=== PATIENT | male | born 1980 | race Caucasian/White ===

== ENCOUNTER 2021-03-11 06:37 | Emergency (ER) | payer OTHER, SELFPAY ==
--- NOTE | ~2021-03-11 | XR_ITS ---
EXAMINATION: XR ABDOMEN COMPLETE CLINICAL INDICATION: Constipation COMPARISON: 03/03/20 TECHNIQUE: Supine and upright views of the abdomen. FINDINGS: There are no suspicious calcifications. Small the moderate amount of gas within small and large bowel throughout the abdomen and pelvis to level the rectum. There is no disproportionate small bowel dilation. There is a large amount of fecal residue throughout the colon to level the rectum. There is no evidence of pneumoperitoneum. No pneumatosis. No evidence of a mass or collection. There may be some linear scarring in the posterior right costophrenic sulcus region. XR/XR abdomen min 2V IMPRESSION: No evidence of small bowel obstruction. No free intraperitoneal gas. Large amount of fecal residue throughout the colon.
[2021-03-11 06:51] VITALS: BP 161/90; PULSE 66; RESP 20; TEMP 36.5; O2SAT 98; BMI 28.8
--- NOTE | 2021-03-11 07:08 | ED.NAVMDI ---
HPI - Nausea/Vomiting/Diarrhea General Chief complaint: Nausea/Vomiting/Diarrhea Stated complaint: Vomiting Time Seen by Provider: 03/11/21 07:08 Source: patient Mode of arrival: ambulatory Limitations: no limitations History of Present Illness HPI Narrative: Patient in methadone clinic, states he gets vomiting from constipation elicited complaint: nausea and vomiting Onset (ago): hour(s) Description of vomiting: watery Associated abdominal pain: Yes Location of pain: diffuse Radiation: diffuse Pain consistency: intermittent Severity: mild Related Data Previous Rx's Medication Instructions Recorded lactulose 20 g PO TID #1200 ml 03/11/21 promethazine 25 mg PO TID PRN #14 tab 03/11/21 psyllium husk [Metamucil] 1 tbsp PO DAILY #660 g 03/11/21 Allergies Allergy/AdvReac Type Severity Reaction Status Date / Time haloperidol [From HALDOL] Allergy Unknown unk Unverified 05/22/20 15:26 Review of Systems Constitutional: Constitutional: Reports no additional constitutional complaints Eyes: Eyes: Reports no additional eye complaints ENT: Denies dizziness Cardiovascular: Cardiovascular: Reports no additional cardiovascular complaints Respiratory: Respiratory: Reports as per HPI Gastrointestinal: Gastrointestinal: Reports no additional gastrointestinal complaints Musculoskeletal: Musculoskeletal: Reports no additional musculoskeletal complaints Integumentary/Breasts: Skin/Breast: Denies rash Neurologic: Reports system reviewed and no additional complaints, except as documented, Denies dizziness and Denies Sensory deficit (Neuro) Psychiatric: Psychiatric: Denies anxiety PMFSH Past Medical History Medical History ACL (anterior cruciate ligament) tear Anxiety Depression Social History Social History Use of substances other than those prescribed or required for medical reasons: Yes Substance Use Type: Opiates Substance Use Type Other:: fentanyl Last Used Substance: Unknown Any prior treatment program specific to substance use: Yes Advance Directives: Yes Advance Directives Information Provided: Yes Advance Directives on File: No Physical Exam Vital Signs: Vital Signs: Last Vital Signs Temp 97.7 F 03/11/21 06:51 Pulse 51 03/11/21 08:49 Resp 16 03/11/21 08:49 BP 116/70 03/11/21 08:49 Pulse Ox 96 03/11/21 08:49 Body Mass Index 28.8 Const: Other: Nausea and vomiting Nutritional Appearance: average body habitus Orientation/consciousness: oriented to person and patient oriented x3 Limitations: no limitations HENMT: Head: Yes normal to inspection Ears: external ears normal General nose exam: Normal external nose present Mouth: Normal oral and palatal mucosa present and oropharynx normal Throat: Yes posterior oropharynx normal Eyes: General: appearance normal, both eyes and all related structures Neck: Other: supple Neck: Yes normal visual inspection Chest: Chest palpation & inspection: normal inspection of the chest Resp: Auscultation: clear to auscultation bilaterally Cardio: Jugular venous distension: no JVD Rate: regular rate Rhythm: regular rhythm Heart sounds: S1 normal heart sound present and S2 normal heart sound present GI: Inspection: Yes normal to inspection Palpation (GI): Soft to palpation, nontender and No hepatosplenomegaly present Auscultation: normal bowel sounds : General: Yes no CVA tenderness Back/Spine/Pelvis: Back: no CVA tenderness Skin: General skin exam: no rashes or lesions noted Neuro: General: oriented to person and patient oriented x3 Cranial nerves: Yes CN's II-XII intact bilaterally Motor exam (neuro): 5/5 motor strength present throughout Sensory Exam: No Sensory deficit (Neuro) Extrem: General: Yes normal to inspection Psych: Appearance: grossly normal Course Course Course Narrative: xray shows large amount of stool, labs normal Reevaluation(s) Reevaluation #1: patient sleeping will dc on phenergan, lactulose and metamucil Time: 08:56 MDM - Nausea/Vomiting/Diarrhea Lab Data Result diagrams: 03/11/21 07:28 03/11/21 07:28 Labs: Lab Results 03/11/21 03/11/21 Range/Units 07:28 07:28 WBC 6.3 (4.8-10.8) X10*3/uL RBC 5.01 (4.60-5.80) X10*6/uL Hgb 14.7 (14.0-18.0) g/dl Hct 43.4 (42-52) % MCV 86.6 (80-98) fL MCH 29.3 (27.0-33.0) pg MCHC 33.9 (31.0-36.0) g/dl RDW 13.2 (11.0-16.0) % Plt Count 177 (160-400) X10*3/uL MPV 10.2 (9.4-12.4) fL Immature Gran % (Auto) 0.2 (0.0-0.4) % Neut % (Auto) 60.2 (45-73) % Lymph % (Auto) 27.3 (20-40) % Burnett % (Auto) 9.1 (2-11) % Eos % (Auto) 2.4 (0-4) % Baso % (Auto) 0.8 (0-2) % Lymph # (Auto) 1.7 (1.2-4.9) X10*3/uL Burnett # (Auto) 0.6 (0.1-1.2) X10*3/uL Eos # (Auto) 0.2 (0.0-0.4) X10*3/uL Baso # (Auto) 0.1 (0.0-0.2) X10*3/uL Abs Immat Gran (auto) 0.01 (0.00-0.03) X10*3/uL Absolute Neuts (auto) 3.8 (2.0-8.3) X10*3/uL Absolute Nucleated RBC 0.000 (0.0-0.012) X10*3/uL Nucleated RBC % (auto) 0.0 (0.0-0.2) /100WBC Sodium 144 (135-145) mmol/L Potassium 3.8 (3.3-5.1) mmol/L Chloride 108 (96-108) mmol/L Carbon Dioxide 27 (22-29) mmol/L Anion Gap 13 (12-20) BUN 11 (9-16) mg/dL Creatinine 0.93 (0.5-1.4) mg/dL Estim Creat Clear Calc 112.7 Estimated GFR > 60 Random Glucose 102 (60-115) mg/dL Calcium 9.3 (8.4-10.2) mg/dL Total Bilirubin 0.5 (0.0-1.0) mg/dL Direct Bilirubin < 0.2 (0.0-0.5) mg/dL AST 20 (5-37) U/L ALT 18 (0-40) U/L Alkaline Phosphatase 64 (39-117) U/L Total Protein 6.6 (6.5-8.0) g/dL Albumin 4.2 (3.5-5.0) g/dL Lipase 26 (8-78) U/L Discharge Plan Discharge Clinical Impression: Constipation Qualifiers: Constipation type: drug induced constipation Qualified Code(s): K59.03 - Drug induced constipation Vomiting Qualifiers: Vomiting type: bilious vomiting Nausea presence: with nausea Qualified Code(s): R11.14 - Bilious vomiting Patient Disposition: Home, Self-Care Instructions: Constipation (ED) Prescriptions: New lactulose 20 gram/30 mL solution 20 g PO TID Qty: 1200 RF: 0 promethazine 25 mg tablet 25 mg PO TID PRN (Reason: nausea and vomiting) Qty: 14 RF: 0 Metamucil 3.4 gram/5.4 gram powder 1 tbsp PO DAILY Qty: 660 RF: 0 Referrals: Po,Patsy Shaw MD [Primary Care Provider] - 5 days
[2021-03-11] MEDS: 0.9 % Sodium Chloride 1,000 ML 200 ML IVCONT (07:30)
[2021-03-11 07:32] LABS: MANUAL DIFF FLAG NO
[2021-03-11 07:33] VITALS: PULSE 50; RESP 18; O2SAT 97
[2021-03-11 07:33] LABS: Basophils Absolute Auto 0.1 X10*3/uL (0.0-0.2); Basophils Percent Auto 0.8 % (0-2); Eosinophils Absolute Auto 0.2 X10*3/uL (0.0-0.4); Eosinophils Percent Auto 2.4 % (0-4); Hematocrit 43.4 % (42-52); Hemoglobin 14.7 g/dl (14.0-18.0); Imm Gran Abs Auto 0.01 X10*3/uL (0.00-0.03); Imm Gran Pct Auto 0.2 % (0.0-0.4); Lymphocytes Absolute Auto 1.7 X10*3/uL (1.2-4.9); Lymphocytes Percent Auto 27.3 % (20-40); Mean Corpuscular HGB Conc 33.9 g/dl (31.0-36.0); Mean Corpuscular Hemoglobin 29.3 pg (27.0-33.0); Mean Corpuscular Volume 86.6 fL (80-98); Mean Platelet Volume 10.2 fL (9.4-12.4); Monocytes Absolute Auto 0.6 X10*3/uL (0.1-1.2); Monocytes Percent Auto 9.1 % (2-11); Neutrophils Absolute Auto 3.8 X10*3/uL (2.0-8.3); Neutrophils Percent Auto 60.2 % (45-73); Platelet Count 177 X10*3/uL (160-400); Red Blood Count 5.01 X10*6/uL (4.60-5.80); Red Cell Distribution Width 13.2 % (11.0-16.0); White Blood Count 6.3 X10*3/uL (4.8-10.8)
[2021-03-11 08:00] LABS: Alanine Aminotransferase 18 U/L (0-40); Albumin Level 4.2 g/dL (3.5-5.0); Alkaline Phosphatase 64 U/L (39-117); Anion Gap 13 (12-20); Aspartate Amino Transferase 20 U/L (5-37); Bilirubin Direct < 0.2 mg/dL (0.0-0.5); Bilirubin Total 0.5 mg/dL (0.0-1.0); Blood Urea Nitrogen 11 mg/dL (9-16); Calcium 9.3 mg/dL (8.4-10.2); Carbon Dioxide 27 mmol/L (22-29); Chloride 108 mmol/L (96-108); Creatinine Clr Calc Pharmacy 112.7; Estimated Glomerular Filt Rate > 60; Glucose Random 102 mg/dL (60-115); Lipase 26 U/L (8-78); Potassium 3.8 mmol/L (3.3-5.1); Sodium 144 mmol/L (135-145); Total Protein 6.6 g/dL (6.5-8.0)
--- NOTE | 2021-03-11 08:08 | PC.NURSE ---
Patient is resting quietly in bed. Pt states nausea is better.
[2021-03-11 08:49] VITALS: BP 116/70; PULSE 51; RESP 16; O2SAT 96
[2021-03-11] MEDS: Lactulose 20 GM/30 ML SOLUTION 30 GM PO (09:00)
== END 2021-03-11 09:07 | disposition home or self-care (01) ==
PROVIDERS: Emergency Provider Emergency Medicine; PCP Internal Medicine
DX: R11.14 Bilious vomiting (principal); K59.03 Drug induced constipation; T50.905A Adverse effect of unspecified drugs, medicaments and biological substances, initial encounter; Y92.9 Unspecified place or not applicable
CPT/HCPCS: 36415; 74019; 80048; 80076; 83690; 85025; 96361; 96374; 99284; J2550

== ENCOUNTER → 2021-04-15 08:52 | Outpatient (BNVA) | payer OTHER, SELFPAY | PROVIDERS: PCP Internal Medicine; Referring Provider Internal Medicine; Visit Provider Physician Assistant | DX: R11.2 Nausea with vomiting, unspecified (principal); F41.9 Anxiety disorder, unspecified; F32.9 Major depressive disorder, single episode, unspecified; K59.00 Constipation, unspecified; F43.10 Post-traumatic stress disorder, unspecified; Z78.9 Other specified health status | CPT/HCPCS: 99202 ==

== ENCOUNTER → 2021-05-04 12:47 | Outpatient (BNVA) | payer OTHER, SELFPAY | PROVIDERS: PCP Internal Medicine; Referring Provider Internal Medicine; Visit Provider Surgery | DX: L72.0 Epidermal cyst (principal) | CPT/HCPCS: 99202 ==

== ENCOUNTER 2021-06-03 12:15 | Outpatient (REF) | payer OTHER, SELFPAY ==
[2021-06-03 12:42] VITALS: BMI 31.4
[2021-06-03 12:44] VITALS: BP 149/87; PULSE 78; RESP 18; TEMP 36.8
--- NOTE | 2021-06-03 12:50 | W.PM.OPN ---
Operative Note Operative Note Date of Service: 06/03/21 Narrative: Preop diagnosis: Epidermal cyst on the back Postop diagnosis: The same Procedure: Excision of epidermal cyst from the back under local anesthesia Surgeon: Reji Cohen MD The patient is a 40-year-old male with a cystic induration about 2.5 cm in the back. This was consistent with a ruptured epidermal cyst. He understood the technique of excision under local anesthesia and he was aware of the risks, benefits, and alternatives. He was brought to the minor procedure room and placed in prone position. The area of the cyst was prepped and draped. Lidocaine 1% was used for local anesthesia. An elliptical incision was made in the skin around this induration using a blade 15. This was carried down through the full-thickness of the skin and subcutaneous fat to excise the entire indurated area. This was sent as specimen. The excision site was about 3 0.5 cm long and 3 cm wide. I closed the incision with full-thickness nylon 3-0 interrupted sutures. Dressings were applied. The procedure was completed. The patient tolerated procedure well. There were no complications noted. Estimated blood loss was about 5 cc. The patient was given wound care instructions. He will be seen in the office for follow-up for removal of sutures.
== END 2021-06-03 12:16 | disposition home or self-care (01) ==
LOC: HO.MS 12:15
PROVIDERS: PCP Internal Medicine; Visit Provider Surgery
PROC: (CPT 11403; principal; 2021-06-03 12:20)
DX: L72.0 Epidermal cyst (principal)
CPT/HCPCS: 11403; 88304

== ENCOUNTER → 2021-06-18 11:06 | Outpatient (BNVA) | payer MEDICARE, MEDICAID, SELFPAY | PROVIDERS: PCP Internal Medicine; Visit Provider Surgery | DX: L72.8 Other follicular cysts of the skin and subcutaneous tissue (principal); F41.8 Other specified anxiety disorders; F43.10 Post-traumatic stress disorder, unspecified; F11.99 Opioid use, unspecified with unspecified opioid-induced disorder; Z88.8 Allergy status to other drugs, medicaments and biological substances; Z87.891 Personal history of nicotine dependence | CPT/HCPCS: 99212 ==

== ENCOUNTER 2021-09-02 11:47 | Outpatient (REF) | payer MEDICARE, MEDICAID, SELFPAY ==
--- NOTE | ~2021-09-02 | XR_ITS ---
EXAMINATION: XR foot LT min 3V, XR foot RT min 3V CLINICAL INFORMATION: Reason for Exam R60.0 - Localized edema COMPARISON: None. TECHNIQUE: AP, lateral, and oblique views of the bilateral feet XR/XR foot LT min 3V FINDINGS/IMPRESSION: No acute fracture or dislocation. Joint spaces are preserved. Bilateral Achilles tendon enthesopathy and right-sided plantar calcaneal spurring. No joint effusion.. Soft tissues are unremarkable.
--- NOTE | ~2021-09-02 | XR_ITS ---
EXAMINATION: XR foot LT min 3V, XR foot RT min 3V CLINICAL INFORMATION: Reason for Exam R60.0 - Localized edema COMPARISON: None. TECHNIQUE: AP, lateral, and oblique views of the bilateral feet XR/XR foot RT min 3V FINDINGS/IMPRESSION: No acute fracture or dislocation. Joint spaces are preserved. Bilateral Achilles tendon enthesopathy and right-sided plantar calcaneal spurring. No joint effusion.. Soft tissues are unremarkable.
[2021-09-02 12:47] LABS: Estimated Average Glucose 105 mg/dL; Hemoglobin A1c % 5.3 %
[2021-09-02 13:11] LABS: Anion Gap 12 (12-20); Blood Urea Nitrogen 11 mg/dL (9-16); Calcium 10.2 mg/dL (8.4-10.2); Carbon Dioxide 31 mmol/L (22-29); Chloride 103 mmol/L (96-108); Estimated Glomerular Filt Rate > 60; Glucose Random 91 mg/dL (60-115); Potassium 4.7 mmol/L (3.3-5.1); Sodium 141 mmol/L (135-145)
[2021-09-02 13:33] LABS: TSH reflex Free T4 2.27 uIU/mL (0.32-4.0)
== END 2021-09-02 11:48 | disposition home or self-care (01) ==
LOC: HO.LAB 11:47
PROVIDERS: PCP Internal Medicine; Visit Provider Nurse Practitioner Family
DX: R60.0 Localized edema (principal); M79.671 Pain in right foot; M79.672 Pain in left foot; Z13.1 Encounter for screening for diabetes mellitus
CPT/HCPCS: 36415; 73630; 80048; 83036; 84443

== ENCOUNTER 2022-05-01 15:14 | Emergency (ER) | payer MEDICARE, MEDICAID, SELFPAY ==
--- NOTE | ~2022-05-01 | XR_ITS ---
EXAMINATION: XR FOOT, RIGHT CLINICAL INFORMATION: Crush injury COMPARISON: Right foot radiographs 09/02/2021 TECHNIQUE: AP, lateral, and oblique views of the right foot. FINDINGS: No acute fracture or dislocation. Joint spaces are maintained. Lisfranc alignment is within normal limits. Posterior and plantar calcaneal spurs are noted. Focal proliferative bone projects from the anterior lip of the tibial plafond. No ankle joint effusion. XR/XR foot RT min 3V IMPRESSION: No acute fracture or dislocation.
[2022-05-01 15:26] VITALS: BP 145/87; PULSE 67; RESP 16; TEMP 36.8; O2SAT 96; BMI 31.3
--- NOTE | 2022-05-01 16:04 | ED_ITS ---
HPI - Extremity Injury (Lower) General Chief Complaint: Extremity Injury, Lower Stated Complaint: ?Fx toe Time Seen by Provider: 05/01/22 16:04 Source: patient Mode of arrival: ambulatory Limitations: no limitations History of Present Illness HPI Narrative: Patient presents emergency department for evaluation of the right great toe/foot pain. He reports that yesterday he dropped a 50 lb machine onto the right foot when he was barefoot. Initially had some discomfort. However today he noticed bruising, swelling, and increasing pain. Pain is made worse with weight- bearing. Denies any prior injury or fracture to this foot. Denies any numbness or tingling. Has intact sensation. States he is able to move all of the toes as well as his foot/ankle. Related Data Home Medications Medication Instructions Recorded Confirmed methadone 10 mg/mL oral concentrate 60 mg PO DAILY 03/16/21 05/04/21 Previous Rx's Medication Instructions Recorded lactulose 20 gram/30 mL oral 20 g (30 mL) PO TID #1,200 mL 03/11/21 solution diclofenac sodium 1 % topical gel 2 g topical QID #100 grams 09/02/21 (Voltaren Arthritis Pain) nabumetone 500 mg tablet 500 mg PO BID #30 tabs 09/02/21 ondansetron HCl 4 mg tablet 4 mg PO BEDTIME PRN nausea and 09/02/21 (Zofran) vomiting #10 tabs Allergies Allergy/AdvReac Type Severity Reaction Status Date / Time haloperidol [From HALDOL] Allergy Unknown unk Verified 09/02/21 10:42 Review of Systems Review of Systems: Musculoskeletal: Positive foot pain as noted in HPI Yes all other systems are reviewed and are negative PMFSH Past Medical History Attestation statement: The following information was validated with the patient. Source: old records reviewed Medical History ACL (anterior cruciate ligament) tear Anxiety and depression Epidermal cyst Hx of drug overdose PTSD (post-traumatic stress disorder) Surgical History History of epidermal inclusion cyst excision Family History Family History Father No problems noted. Mother COPD (chronic obstructive pulmonary disease) Sister No problems noted. Brother No problems noted. Social History Social History Housing: House Alcohol intake: former Patient Tobacco Use Status: Former Tobacco user Tobacco use type: Cigarette e-Cigarette/Vaping Use: Never Used Second Hand Smoke Exposure: Yes Substance Use Type: Opiates Advance Directives: No Advance Directives Information Provided: No service: No Current occupational status: disabled Physical Exam Vital Signs: Vital Signs: Last Vital Signs Temp 98.3 F 05/01/22 15:26 Pulse 67 05/01/22 15:26 Resp 16 05/01/22 15:26 BP 145/87 H 05/01/22 15:26 Pulse Ox 96 05/01/22 15:26 O2 Del Method 05/01/22 15:26 BMI result Body Mass Index 31.3 Appearance: Alert.?Oriented to person, place and time. No acute distress.?Normal affect. Eyes: Pupils equal, round and reactive to light.? ENT: Pharynx normal.?? Neck: Normal inspection.? Neck supple.?? CVS: Heart sounds normal. Normal heart rate and rhythm.? Pulses normal.?? Respiratory: No respiratory distress.? Lung sounds clear to auscultation bilaterally?? Abdomen: Soft and non-tender. ?? Skin: Skin warm and dry.? Normal skin color.? Extremities: No calf ttp. Bilateral 2+ DP/PT pulse. Right great toe with bruising that extends to the base of the toe over the metatarsal, localized swelling. No erythema, warmth, or obvious deformity. Neuro: Moves all extremities spontaneously. Sensation intact bilaterally. No motor deficits. Ambulates with antalgic gait Course Course Course Narrative: Patient is a 41-year-old male who presents emergency department for evaluation of traumatic crush injury to right foot having occurred yesterday. Extremity is neurovascularly intact. Cap refill to right great toe <3 seconds. XR reveals no acute fracture dislocation. Discussed plan of care for rest, ice, compression, elevation, NSAIDs for pain, postop shoe to offload the foot. Weightbearing as tolerated. Advised of worrisome signs and symptoms return back to the emergency department for, outpatient follow-up with primary care provider as needed. All questions were answered, and patient was discharged home in stable condition. MDM - Extremity Injury (Lower) Medical Records Attestation: I reviewed the patient's medical records. Imaging Data XR foot: Radiologist's impression: XR/XR foot RT min 3V IMPRESSION: No acute fracture or dislocation. Discharge Plan Discharge Clinical Impression: Contusion of foot Patient Disposition: Home, Self-Care Instructions: Foot Contusion (ED) Additional Instructions: As we discussed, please be sure to rest, apply ice, elevate the leg. Use the offloading shoe to help with pain when walking. Bear weight as tolerated. You can take ibuprofen 200 mg, 3 tablets (600mg) every 6-8 hours as needed for pain, in addition to Tylenol 500 mg, 2 tablets (1,000mg) every 4-6 hours as needed for pain, but not to exceed 3 doses daily (3,000mg).? Follow-up with your primary care provider as needed Return to the emergency department any new or worsening symptoms or concerns Prescriptions: No Action lactulose 20 gram/30 mL solution 20 g PO TID Qty: 1200 0RF Rx Instructions: take until stool is soft or becoming liquid than stop methadone 10 mg/mL concentrate 60 mg PO DAILY diclofenac sodium [Voltaren Arthritis Pain] 1 % gel 2 g topical QID Qty: 100 0RF Rx Instructions: apply to single elbow, wrist or hand; for hand includes palm/fingers/back of hand nabumetone 500 mg tablet 500 mg PO BID Qty: 30 0RF ondansetron HCl [Zofran] 4 mg tablet 4 mg PO BEDTIME PRN (Reason: nausea and vomiting) Qty: 10 0RF
== END 2022-05-01 16:49 | disposition home or self-care (01) ==
PROVIDERS: Emergency Provider Emergency Medicine; PCP Internal Medicine
DX: S90.31XA Contusion of right foot, initial encounter (principal); W20.8XXA Other cause of strike by thrown, projected or falling object, initial encounter; Y93.9 Activity, unspecified; Y92.9 Unspecified place or not applicable; Y99.9 Unspecified external cause status
CPT/HCPCS: 73630; 99283

== ENCOUNTER 2022-09-09 12:22 | Emergency (ER) | payer MEDICARE, MEDICAID, SELFPAY ==
[2022-09-09 14:43] VITALS: BP 135/91; PULSE 55; RESP 18; TEMP 36.1; O2SAT 96; BMI 31.3
--- NOTE | 2022-09-09 14:47 | ED.GENADULT ---
HPI - General Adult General Stated complaint: mouth infection Related Data Home Medications Medication Instructions Recorded Confirmed methadone 10 mg/mL oral concentrate 60 mg PO DAILY 03/16/21 05/04/21 Previous Rx's Medication Instructions Recorded lactulose 20 gram/30 mL oral 20 g (30 mL) PO TID #1,200 mL 03/11/21 solution diclofenac sodium 1 % topical gel 2 g topical QID #100 grams 09/02/21 (Voltaren Arthritis Pain) nabumetone 500 mg tablet 500 mg PO BID #30 tabs 09/02/21 ondansetron HCl 4 mg tablet 4 mg PO BEDTIME PRN nausea and 09/02/21 (Zofran) vomiting #10 tabs Allergies Allergy/AdvReac Type Severity Reaction Status Date / Time haloperidol [From HALDOL] Allergy Unknown unk Verified 09/09/22 14:48 PMFSH Past Medical History Medical History ACL (anterior cruciate ligament) tear Anxiety and depression Epidermal cyst Hx of drug overdose PTSD (post-traumatic stress disorder) Surgical History History of epidermal inclusion cyst excision Family History Family History Father No problems noted. Mother COPD (chronic obstructive pulmonary disease) Sister No problems noted. Brother No problems noted. Social History Social History Housing: House Alcohol intake: former Patient Tobacco Use Status: Former Tobacco user Tobacco use type: Cigarette e-Cigarette/Vaping Use: Never Used Second Hand Smoke Exposure: Yes Substance Use Type: Opiates service: No Current occupational status: disabled Course Course Course Narrative: RME: Discharge Plan Discharge Prescriptions: No Action lactulose 20 gram/30 mL solution 20 g PO TID Qty: 1200 0RF Rx Instructions: take until stool is soft or becoming liquid than stop methadone 10 mg/mL concentrate 60 mg PO DAILY diclofenac sodium [Voltaren Arthritis Pain] 1 % gel 2 g topical QID Qty: 100 0RF Rx Instructions: apply to single elbow, wrist or hand; for hand includes palm/fingers/back of hand nabumetone 500 mg tablet 500 mg PO BID Qty: 30 0RF ondansetron HCl [Zofran] 4 mg tablet 4 mg PO BEDTIME PRN (Reason: nausea and vomiting) Qty: 10 0RF
--- OUTSIDE RECORDS SUMMARY | 2022-09-09 14:54 | XMS_ITS ---
:1980 Author Care Team Providers Name Role Phone DR. SHELBY REIS Primary Care Provider [phone] DR. SHELBY REIS Referring Provider [phone] VINNIE CHANEL News Agent [phone] Allergies Code Code System Name Reaction Severity Status Onset Haldol ? ? Active ? Medications Name Status Start Date Stop Date ? ? Augmentin 875 mg-125 mg tablet Completed ? 0 10/20/2018 Take 1 tablet every 12 hours by oral route for 10 days. naproxen 500 mg tablet Active ? Not avail able sulfamethoxazole 800 mg-trimethoprim 160 mg tablet Completed ? 10/20/2018 Tessalon Perles 100 mg capsule Completed ? 0 10/20/2018 Take 1 capsule 3 times a day by oral route for 5 days. Problems No Known Problems Procedures None recorded. Results Lab Results Date Name Specimen Result Interpretation Description Value Range Status Address ? 10/25/2018 Surgical Pathology ? Surgical ? ? Final [facility] Study [facility]: [address] Past Encounters None recorded. Social History Tobacco Smoking Status Former Smoker Vaccine List None recorded. Plan of Care Reminders Provider Appointments None recorded. ? ? Lab None recorded. ? ? Referral None recorded. ? ? Procedures None recorded. ? ? Surgeries None recorded. ? ? Imaging None recorded. ? ? Vitals 11/20/2018 11:20AM ANY APPT - 05 MIN Height Weight BMI Blood Pressure 67 in 228 lbs 8 oz 35.8 kg/m2 122/82 mm[Hg] 11/08/2018 11:30AM Surgery-F/U Height Weight BMI Blood Pressure 67 in 234 lbs 6.4 oz 36.7 kg/m2 141/89 mm[Hg] 10/25/2018 01:30PM SURG-LOCAL Height Weight BMI 67 in 227 lbs 16 oz 35.7 kg/m2 10/20/2018 11:00AM Surgery-TRANSLITERATOR Height Weight BMI Blood Pressure 67 in 227 lbs 3.2 oz 35.6 kg/m2 124/82 mm[Hg] 08/17/2018 01:20PM ANY APPT - 05 MIN Weight Blood Pressure 287 lbs 16 oz 130/62 mm[Hg]
--- OUTSIDE RECORDS SUMMARY | 2022-09-09 14:54 | XMS_ITS ---
:1980 Author Care Team Providers Name Role Phone DR. SHELBY REIS Primary Care Provider [phone] DR. SHELBY REIS Referring Provider [phone] VINNIE CHANEL School Janitor [phone] Allergies None recorded. Medications Name Status Start Date Stop Date ? ? naproxen 500 mg tablet Active ? Not avail able sulfamethoxazole 800 mg-trimethoprim 160 mg tablet Active ? Not available Problems None recorded. Procedures None recorded. Results Lab Results None recorded. Past Encounters None recorded. Social History None recorded. Vaccine List None recorded. Plan of Care Reminders Provider Appointments None recorded. ? ? Lab None recorded. ? ? Referral None recorded. ? ? Procedures None recorded. ? ? Surgeries None recorded. ? ? Imaging None recorded. ? ? Vitals Weight Blood Pressure 230 lbs 126/82 mm[Hg]
[2022-09-09] MEDS: Amoxicillin 500 MG CAPSULE PO (14:56)
[2022-09-09] MEDS: Clindamycin HCL 300 MG CAPSULE PO (14:56)
== END 2022-09-09 15:11 | disposition home or self-care (01) ==
PROVIDERS: Emergency Provider Emergency Medicine; PCP Internal Medicine
DX: K05.10 Chronic gingivitis, plaque induced (principal)
CPT/HCPCS: 99282; 99283

== ENCOUNTER 2022-12-15 08:18 | Outpatient (REF) | payer OTHER, SELFPAY ==
[2022-12-15 08:29] LABS: MANUAL DIFF FLAG NO
[2022-12-15 08:41] LABS: Basophils Percent Auto 0.5 % (0-2); Eosinophils Absolute Auto 0.2 X10*3/uL (0.0-0.4); Eosinophils Percent Auto 1.8 % (0-4); Hematocrit 42.1 % (42.0-52.0); Hemoglobin 14.4 g/dl (14.0-18.0); Imm Gran Abs Auto 0.04 X10*3/uL (0.00-0.03); Imm Gran Pct Auto 0.5 % (0.0-0.4); Lymphocytes Absolute Auto 1.5 X10*3/uL (1.2-4.9); Lymphocytes Percent Auto 17.9 % (20-40); Mean Corpuscular HGB Conc 34.2 g/dl (31.0-36.0); Mean Corpuscular Hemoglobin 29.5 pg (27.0-33.0); Mean Corpuscular Volume 86.3 fL (80.0-98.0); Monocytes Absolute Auto 0.8 X10*3/uL (0.1-1.2); Monocytes Percent Auto 10.1 % (2-11); Neutrophils Absolute Auto 5.8 x10*3/uL (2.0-8.3); Neutrophils Percent Auto 69.2 % (45-73); Platelet Count 198 X10*3/uL (160-400); Red Blood Count 4.88 X10*6/uL (4.60-5.80); Red Cell Distribution Width 12.6 % (11.0-16.0); White Blood Count 8.3 X10*3/uL (4.8-10.8)
[2022-12-15 09:17] LABS: Alanine Aminotransferase 21 U/L (0-40); Albumin Level 4.2 g/dL (3.5-5.0); Alkaline Phosphatase 76 U/L (39-117); Anion Gap 13 (12-20); Aspartate Amino Transferase 22 U/L (5-37); Bilirubin Total 0.5 mg/dL (0.0-1.0); Blood Urea Nitrogen 12 mg/dL (9-16); Calcium 9.2 mg/dL (8.4-10.2); Carbon Dioxide 28 mmol/L (22-29); Chloride 105 mmol/L (96-108); Cholesterol 207 mg/dL; Estimated Glomerular Filt Rate > 60; Glucose Random 102 mg/dL (60-115); HDL Cholesterol 33 mg/dL; LDL Cholesterol Calculated 158 mg/dl; Potassium 4.5 mmol/L (3.3-5.1); Sodium 141 mmol/L (135-145); Total Protein 6.6 g/dL (6.5-8.0); Triglycerides 80 mg/dL
[2022-12-15 09:46] LABS: Folate 15.1 ng/mL (> or = 4.0); Free T4 (Free Thyroxine) 0.85 ng/dL (0.71-1.85); Thyroid Stimulating Hormone 2.25 uIU/mL (0.32-4.0); Vitamin B12 760 pg/mL (200-900)
== END 2022-12-15 08:19 | disposition home or self-care (01) ==
LOC: HO.LAB 08:18
PROVIDERS: PCP Internal Medicine; Visit Provider Internal Medicine
DX: L40.9 Psoriasis, unspecified (principal); E78.00 Pure hypercholesterolemia, unspecified
CPT/HCPCS: 36415; 80053; 80061; 82607; 82746; 84439; 84443; 85025

== ENCOUNTER 2022-12-18 10:28 | Outpatient (REF) | payer OTHER, SELFPAY ==
[2022-12-18 11:40] LABS: Erythrocyte Sedimentation Rate 5 MM/HR (0-15)
[2022-12-20 08:53] LABS: Syphilis Screen Nonreactive (Nonreactive)
[2022-12-20 18:38] LABS: Lyme Abs Screen <0.90 index
== END 2022-12-18 10:29 | disposition home or self-care (01) ==
LOC: HO.LAB 10:28
PROVIDERS: PCP Internal Medicine; Visit Provider Internal Medicine
DX: M79.10 Myalgia, unspecified site (principal)
CPT/HCPCS: 36415; 82550; 85652; 86140; 86617; 86618; 86780

== ENCOUNTER 2023-03-24 08:30 | Outpatient (AMB) | payer OTHER, SELFPAY ==
[2023-03-24 08:36] VITALS: BP 136/70; PULSE 82; O2SAT 98; BMI 35.1
--- NOTE | 2023-03-24 08:36 | MHC.PC.OV ---
Vital Signs 03/24/23 08:36 Height 5 ft 7 in Weight 224 lb BMI 35.1 BP 136/70 Blood Pressure Location Lt brachial Position Sitting Pulse 82 Pulse Source Pulse Oximeter Pulse Oximetry (%) 98 Oxygen Delivery Method Room Air Intake Visit Reasons: myalgia, IGT, cholesterol Allergies haloperidol [From HALDOL] Allergy (Unknown, Verified 03/24/23 08:36) unk Tobacco use date assessed: 09/16/22 Dental Screening Dental Screen Date: 03/24/23 Did you have a dental visit in the last 12 months?: Yes Did you have a dental problem in the last 6 months where you did not have access to dental care?: No Was dental information given to patient?: Patient has dentist HPI myalgia, IGT, cholesterol HPI Details 42-year-old obese male with generalized anxiety disorder polysubstance abuse hypercholesterolemia impaired glucose tolerance and myalgia last seen in December 2022 workup was requested and is here for follow-up. Patient does go to methadone clinic and change in dose was done. Physical therapy is helping and found to have to have methadone need to be increase EKG being done in [facility]. 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 COUNTS INCLUDE 234 BEDS AT THE [facility] Medical History (Updated 03/24/23 @ 08:53 by Patsy Sheffield MD) ACL (anterior cruciate ligament) tear Anxiety and depression Bilateral edema of lower extremity Calcaneal spur of right foot Encounter to establish care Enthesopathy Epidermal cyst Hx of drug overdose Nausea Nausea & vomiting Physical exam (~09/02/21) Poor historian PTSD (post-traumatic stress disorder) Screening for diabetes mellitus Sebaceous cyst Surgical History History of epidermal inclusion cyst excision Family History (Updated 09/16/22 @ 16:59 by Patsy Sheffield MD) Father No problems noted. Mother COPD (chronic obstructive pulmonary disease) Sister No problems noted. Brother No problems noted. Maternal Aunt Lung cancer Social History (Updated 09/16/22 @ 17:00 by Patsy Sheffield MD) Housing: House Alcohol intake: former Patient Tobacco Use Status: Former Tobacco user Tobacco use type: Cigarette Years Smoked: quit 2017 e-Cigarette/Vaping Use: Never Used Second Hand Smoke Exposure: Yes Substance Use Type: Opiates service: No Current occupational status: disabled Cognitive needs: No Hearing needs: No Vision needs: Yes Questionnaire PHQ-9 Over the last 2 weeks, how often have you been bothered by any of the following problems? 1. Little interest or pleasure in doing things: not at all 2. Feeling down, depressed, or hopeless: not at all 3. Trouble falling or staying asleep, or sleeping too much: not at all 4. Feeling tired or having little energy: not at all 5. Poor appetite or overeating: not at all 6. Feeling bad about yourself - or that you are a failure or have let yourself or your family down: not at all 7. Trouble concentrating on things, such as reading the newspaper or watching television: not at all 8. Moving or speaking so slowly that other people could have noticed. Or the opposite - being so fidgety or restless that you have been moving around a lot more than usual: not at all 9. Thoughts that you would be better off or of hurting yourself in some way: not at all Total score: 0 Depression Screening Interpretation: Negative Source: Developed by Drs. Artemio Villanueva, Bear Guerrero and colleagues, with an educational malini from [employer]. Thrive Questionnaire Date Thrive assessed: 09/16/22 AUDIT C Alcohol Use Questionnaire (AUDIT-C) 1. How often do you have a drink containing alcohol?: Never 2. How many drinks containing alcohol do you have on a typical day when you are drinking?: 1 or 2 3. How often do you have six or more drinks on one occasion?: Never Total Score: 0 JANE-7 AMB Questionnaire JANE-7 Date JANE - 7 assessed: 09/16/22 Source: Developed by Drs. Artemio Villanueva, Bear Guerrero and colleagues, with an educational malini from [employer]. Physical exam (Primary Care) Vital Signs: Last Vital Signs Pulse 82 03/24/23 08:36 BP 136/70 03/24/23 08:36 Pulse Ox 98 03/24/23 08:36 Oxygen Delivery Method Room Air 03/24/23 08:36 BMI result Body Mass Index 35.1 Tobacco/Smoking Status: Tobacco use Status Tobacco use date assessed 09/16/22 03/24/23 08:43 Patient Tobacco Use Status Former Tobacco user 03/24/23 08:43 Tobacco use type Cigarette 03/24/23 08:43 e-Cigarette/Vaping Use Never Used 03/24/23 08:43 PHQ-9: PHQ-9 Score PHQ-9: Total score 0 03/24/23 08:43 Depression Screening Interpretation: Negative Thrive Assessment: Date of Thrive Assessment Date Thrive assessed 09/16/22 03/24/23 08:43 Const General: alert; No acute distress Eyes Conjunctivae: conjunctivae normal Resp Auscultation: clear to auscultation bilaterally Cardio Rate: regular rate Rhythm: regular rhythm GI Inspection: Yes normal to inspection Extrem General: Yes normal to inspection and No edema Assessment and Plan Assessment & Plan (1) Myalgia: Code(s): M79.10 - Myalgia, unspecified site Plan: Workup so far has been not significant (2) Impaired glucose tolerance: Code(s): R73.02 - Impaired glucose tolerance (oral) Plan: Decrease the amount of carbohydrate intake, pasta, bread, rice and potatoes are all sugar and that is aside from all the sweet stuff, remember that fruits are good but they are Sweet also. (3) Hypercholesterolemia: Code(s): E78.00 - Pure hypercholesterolemia, unspecified Plan: Avoid fried foods, chicken skin, eggs, butter margarine, pastries and meat. Be it pork or beef they have a lot of cholesterol (4) Obesity: Code(s): E66.9 - Obesity, unspecified Plan: Diet and exercise (5) Generalized anxiety disorder: Code(s): F41.1 - Generalized anxiety disorder (6) Polysubstance abuse: Comment: opioid overdose coma 12/2018 hypoxic respiratory failure, ARDS, Aspiration, ischemic liver injury, DVT, bensodiazepaine withdrawal Code(s): F19.10 - Other psychoactive substance abuse, uncomplicated Plan: Continue with methadone (7) Vision changes: Code(s): H53.9 - Unspecified visual disturbance Orders: Referrals Ophthalmology Referral H53.9 - Unspecified visual disturbance Coding Level of Care Code Est Pt Level 4 (63331) Diagnoses Myalgia M79.10 Impaired glucose tolerance R73.02 Hypercholesterolemia E78.00 Obesity E66.9 Generalized anxiety disorder F41.1 Polysubstance abuse F19.10 Vision changes H53.9
== END 2023-03-24 08:57 | disposition home or self-care (01) ==
PROVIDERS: PCP Internal Medicine; Visit Provider Internal Medicine
DX: M79.10 Myalgia, unspecified site (principal); F19.10 Other psychoactive substance abuse, uncomplicated; Z68.35 Body mass index [BMI] 35.0-35.9, adult; R73.02 Impaired glucose tolerance (oral); E78.00 Pure hypercholesterolemia, unspecified; E66.9 Obesity, unspecified; F41.1 Generalized anxiety disorder; H53.9 Unspecified visual disturbance
CPT/HCPCS: 99214

== ENCOUNTER 2023-04-04 11:00 | Outpatient (RCR) | payer OTHER, SELFPAY ==
--- NOTE | 2023-04-04 13:04 | MHC.PT.DC ---
[facility] [place] Office [place] [facility] [place] Office [address] Karmen Quiroz [address] [phone] F: [phone] F: [phone] F: [phone] F: [phone] Physical Therapy Discharge Report Diagnosis: KEILA SHOULDER PAIN, KEILA LEG PAIN (KP) Date of Surgery: Date of Evaluation: 02/14/23 Date of Discharge: 04/04/23 Treatments to Date: 14 Cancellations to Date: 0 No Shows to Date: 0 Discharge Status: Achieved Goals Improved Function Independent with HEP Discharge Summary: Independent with current HEP and has returned to gym program. Feels confident with HEP and self management of symptoms. DCed on this date Electronically signed by: Doris Justice PT DPT Please sign and return to therapist. Thank you for your referral.
== END 2023-04-04 13:03 | disposition home or self-care (01) ==
LOC: HO.PT 11:00
PROVIDERS: PCP Internal Medicine; Visit Provider Internal Medicine
DX: M79.604 Pain in right leg (principal); M79.605 Pain in left leg; M25.511 Pain in right shoulder; M25.512 Pain in left shoulder
CPT/HCPCS: 97110; 97163

== ENCOUNTER 2023-07-14 13:50 | Emergency (ER) | payer OTHER, SELFPAY ==
[2023-07-14 13:58] VITALS: BP 150/87; BP 168/92; PULSE 105; PULSE 118; RESP 18; TEMP 36.7; O2SAT 97; BMI 28.2
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
--- NOTE | 2023-07-14 14:12 | PC.NURSE ---
Pt comes in via EMS, patient appears to be anxious, stating I just want to go home and rest . Pt offers no complaints and denies pain at this time. Patient's vital signs stable, HR and BP slightly elevated aligning with his anxiousness. Patient is calm and cooperative with care at this time. Respirations even and unlabored, skin pwd, alert and oriented x4, ambulating with steady gait around room. Upon second examination, patient appears to be less anxious
[2023-07-14 14:14] VITALS: BP 140/88; PULSE 104; RESP 18; O2SAT 98
== END 2023-07-14 14:24 | disposition home or self-care (01) ==
PROVIDERS: Emergency Provider Student in an Organized Health Care Education/Training Program; PCP Internal Medicine
DX: Z04.1 Encounter for examination and observation following transport accident (principal); F19.10 Other psychoactive substance abuse, uncomplicated
CPT/HCPCS: 99282; 99284

== ENCOUNTER 2023-09-20 11:15 | Outpatient (AMB) | payer OTHER, SELFPAY ==
[2023-09-20 11:16] VITALS: BP 138/96; PULSE 60; O2SAT 97; BMI 37.9
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
== END 2023-09-20 11:58 | disposition home or self-care (01) ==
PROVIDERS: PCP Internal Medicine; Visit Provider Internal Medicine
DX: Z00.00 Encounter for general adult medical examination without abnormal findings (principal); F19.10 Other psychoactive substance abuse, uncomplicated; R73.02 Impaired glucose tolerance (oral); E78.00 Pure hypercholesterolemia, unspecified; F41.1 Generalized anxiety disorder; I83.891 Varicose veins of right lower extremity with other complications; L40.9 Psoriasis, unspecified
CPT/HCPCS: 99396

== ENCOUNTER 2023-10-25 09:23 | Outpatient (AMB) | payer OTHER, SELFPAY ==
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
[2023-10-25 09:35] VITALS: BMI 37.9
== END 2023-10-25 09:55 | disposition home or self-care (01) ==
PROVIDERS: PCP Internal Medicine; Visit Provider Surgery Vascular Surgery
DX: I83.11 Varicose veins of right lower extremity with inflammation (principal)
CPT/HCPCS: 99203

== ENCOUNTER → 2023-10-25 09:23 | Outpatient (BNVA) | payer OTHER, SELFPAY | PROVIDERS: PCP Internal Medicine; Visit Provider Surgery Vascular Surgery | DX: I83.11 Varicose veins of right lower extremity with inflammation (principal) | CPT/HCPCS: 99202 ==

== ENCOUNTER 2023-10-31 08:23 | Outpatient (REF) | payer OTHER, SELFPAY ==
--- NOTE | ~2023-10-31 | US_ITS ---
EXAMINATION: US LOWER EXTREMITY VENOUS (REFLUX EXAM), BILATERAL CLINICAL INFORMATION: Chronic venous insufficiency with lower extremity varicose veins and pain COMPARISON: None. TECHNIQUE: Color flow triplex imaging and compression Doppler was performed to evaluate both the deep and the superficial systems bilaterally. To evaluate the superficial system, the examination was performed in the upright position. Color-flow Doppler ultrasound and compression ultrasound were utilized. In addition, maneuvers were utilized to demonstrate reflux. FINDINGS: 1. DEEP VENOUS ULTRASOUND OF THE RIGHT LOWER EXTREMITY: Common Femoral Vein: Compressible, normal respiratory variation and augmented flow. Femoral Vein: Compressible, normal color flow and augmentation. Popliteal Vein: Compressible, normal augmentation. Deep Reflux: There is no evidence of reflux in the deep system in either the common femoral vein, superficial femoral or the popliteal vein. There is no evidence of a Zaidi's cyst. 2. SUPERFICIAL ULTRASOUND WITH DOPPLER OF RIGHT LOWER EXTREMITY: GREAT SAPHENOUS VEIN: Saphenofemoral Junction: 1.0 cm; Reflux: 2784 ms Proximal Thigh: 1.1 cm; Reflux: 2628 ms Mid Thigh: 0.4 cm; Reflux: 0 ms Distal Thigh: 0.3 cm; Reflux: 0 ms At Knee: 0.3 cm; Reflux: 0 ms Proximal Calf: 0.5 cm; Reflux: 1052 ms Mid Calf: 0.2 cm; Reflux: 0 ms Distal Calf: 0.2 cm; Reflux: 0 ms DUPLICATED MEDIAL GREAT SAPHENOUS VEIN: Diameter: None imaged Reflux: NA DUPLICATED LATERAL GREAT SAPHENOUS VEIN: Diameter: None imaged Reflux: NA SMALL SAPHENOUS VEIN: Saphenopopliteal Junction: 0.3 cm; Reflux: 0 ms Mid: 0.4 cm; Reflux: 1560 ms Distal: 0.4 cm; Reflux: 0 ms VEIN OF GIACOMINI: Size: NA Reflux: NA PERFORATORS: Location: Proximal calf extending to the great saphenous vein Size: 0.9 cm Reflux: None VARICOSITIES: Location: Proximal and mid to thigh off the great saphenous vein extending into the calf. Posterior calf off the small saphenous vein Size: Ranging in size from 0.3 to 0.7 cm Reflux: Ranging from 496 ms to 2856 ms 3. DEEP VENOUS ULTRASOUND OF THE LEFT LOWER EXTREMITY: Common Femoral Vein: Compressible, normal respiratory variation and augmented flow. Femoral Vein: Compressible, normal color flow and augmentation. Popliteal Vein: Compressible, normal augmentation. Deep Reflux: There is no evidence of reflux in the deep system in either the common femoral vein, superficial femoral or the popliteal vein. There is no evidence of a Zaidi's cyst. 4. SUPERFICIAL ULTRASOUND WITH DOPPLER OF LEFT LOWER EXTREMITY: GREAT SAPHENOUS VEIN: Saphenofemoral Junction: 0.8 cm; Reflux: 0 ms Proximal Thigh: 0.5 cm; Reflux: 0 ms Mid Thigh: 0.3 cm; Reflux: 0 ms Distal Thigh: 0.4 cm; Reflux: 0 ms At Knee: 0.4 cm; Reflux: 0 ms Proximal Calf: 0.3 cm; Reflux: 0 ms Mid Calf: 0.3 cm; Reflux: 0 ms Distal Calf: 0.3 cm; Reflux: 0 ms DUPLICATED MEDIAL GREAT SAPHENOUS VEIN: Diameter: 0.5 cm Reflux: None DUPLICATED LATERAL GREAT SAPHENOUS VEIN: Diameter: None imaged. Reflux: NA SMALL SAPHENOUS VEIN: Saphenopopliteal Junction: 0.5 cm; Reflux: 0 ms Proximal: 0.2 cm; Reflux: 0 ms Distal: 0.3 cm; Reflux: 0 ms VEIN OF GIACOMINI: Size: NA Reflux: NA PERFORATORS: Location: None imaged Size: NA Reflux: NA VARICOSITIES: Location: None significant Size: NA Reflux: NA US/US venous insuf bilat IMPRESSION: Right: Severe reflux in the right great saphenous vein with large branching varicose veins as described above. There is also focal segmental reflux in the mid calf small saphenous vein with branching varicosities. Left: No significant venous insufficiency or reflux in the left lower extremity
== END 2023-10-31 08:24 | disposition home or self-care (01) ==
LOC: HO.US 08:23
PROVIDERS: PCP Internal Medicine; Visit Provider Surgery Vascular Surgery
DX: I83.11 Varicose veins of right lower extremity with inflammation (principal)
CPT/HCPCS: 93970

== ENCOUNTER 2023-11-24 09:10 | Outpatient (AMB) | payer OTHER, SELFPAY ==
[2023-11-24 09:14] VITALS: BMI 37.9
--- NOTE | 2023-11-24 09:14 | MHC.OFFVIS ---
Intake Vital Signs 11/24/23 09:14 Height 5 ft 6 in Weight 235 lb BMI 37.9 Intake Visit Reasons: follow up [facility] 10/31/2023 Intake Note: Patient presents for follow up 10/31/23 [facility]. Patient states he is having pain and swelling in his right leg, mostly after the gym or after hiking. States it is mostly on the left side of his calf and ankle. Uses compression socks and states it helps. Accompanied by: Self / Same As Patient Allergies haloperidol [From HALDOL] Allergy (Unknown, Verified 11/24/23 09:18) unk HPI follow up [facility] 10/31/2023 HPI Details Very pleasant 43-year-old gentleman presents for follow-up regarding venous insufficiency. He has significantly swollen varicose right lower extremity. 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 He now presents for follow-up with venous insufficiency testing. Of note he was in a coma at [facility] in 2019 secondary to an overdose. At that time he did develop a DVT which appears to have resolved. [facility] Medical History Calcaneal spur of right foot Enthesopathy Nausea Hx of drug overdose Physical exam (~09/02/21) Screening for diabetes mellitus Bilateral edema of lower extremity Encounter to establish care Epidermal cyst Poor historian PTSD (post-traumatic stress disorder) Nausea & vomiting Sebaceous cyst Anxiety and depression ACL (anterior cruciate ligament) tear Surgical History H/O wisdom tooth extraction History of epidermal inclusion cyst excision Family History Father No problems noted. Mother COPD (chronic obstructive pulmonary disease) Sister No problems noted. Brother No problems noted. Maternal Aunt Lung cancer Maternal Uncle Brain mass Social History Housing: House Alcohol intake: former Comment: quit 2009 Patient Tobacco Use Status: Former Tobacco user Tobacco use type: Cigarette Years Smoked: quit 2016 e-Cigarette/Vaping Use: Never Used Second Hand Smoke Exposure: Yes Substance Use Type: Marijuana service: No Current occupational status: disabled Cognitive needs: No Hearing needs: No Vision needs: Yes Review of Systems Const All systems reviewed & are unremarkable except as noted in HPI and below Reports no additional complaints ENT Reports Normal hearing present Card Denies chest pain, Denies chest pain at rest, Denies chest pain with activity and Denies pedal edema Resp Denies cough GI Denies abdominal pain Musc Denies abnormal gait, Denies muscle cramps and Denies radiating pain into limb Skin/Breast Denies skin ulcer and Denies wounds Neuro Reports Normal hearing present and Denies abnormal gait Psych Reports no additional complaints Physical Exam Vital Signs: BMI result Body Mass Index 37.9 Const General: cooperative, healthy appearing and comfortable Orientation/consciousness: oriented to person, oriented to place and oriented to time HEENT Head: Yes normal to inspection Neck Neck: Yes normal visual inspection Carotids: no bruits Chest Chest palpation & inspection: normal inspection of the chest Resp Effort & Inspection: normal respiratory effort and able to speak in complete sentences Auscultation: clear to auscultation bilaterally, no crackles, no rales, no rhonchi and no wheezes Cardio Rate: regular rate Rhythm: regular rhythm Heart sounds: S1 normal heart sound present and S2 normal heart sound present Bruits: no carotid bruits Peripheral pulses: Peripheral pulses 2+ throughout GI Inspection: Yes normal to inspection Skin Wounds: no wounds Hair: normal Neuro General: oriented to person, oriented to place and oriented to time Cranial nerves: Yes CN's II-XII intact bilaterally and Yes Normal hearing present Cognition (Neuro): normal cognition Motor exam (neuro): 5/5 motor strength present throughout Extrem Other: venous exam: No significant superficial varicosities or spider telangiectasias, minimal edema General: No clubbing, No cyanosis and No edema Psych Appearance: grossly normal Mental Status: mental status grossly normal Speech and movement: Normal speech and movement present Results Reviewed Results Reviewed: Brief summary of venous insufficiency testing is as follows: right great saphenous vein: Positive right small saphenous vein: negative right accessory vein: none present left great saphenous vein: negative left small saphenous vein: negative left accessory vein: none present Please note there is no evidence of any venous aneurysms or significant tortuosity Assessment & Plan Assessment & Plan (1) Varicose veins of right lower extremity with inflammation: Code(s): I83.11 - Varicose veins of right lower extremity with inflammation Plan: This patient has varicose veins with inflammation. They continue to be a source of discomfort for the patient. The patient has tried conservative treatment with compression, leg elevation and exercise program for over 3 months time. They have been compliant with all treatment. This has provided minimal relief for the patient. I do not anticipate this course of treatment will alter the underlying etiology. The patient has been scheduled for lower extremity venous treatment inclusive of --- right great saphenous vein radiofrequency ablation. Risks, benefits, and complications of this procedure has been discussed in detail with the patient including but not limited to bleeding, infection, and the development of a DVT. The patient has demonstrated a clear understanding and has consented. We will schedule the patient as soon as possible. Thank you for allowing us to participate in this patient's care. If there are any questions or concerns please do not hesitate to contact us. Coding Level of Care Code Est Pt Level 4 (21343) Diagnoses Varicose veins of right lower extremity with inflammation I83.11
== END 2023-11-24 09:58 | disposition home or self-care (01) ==
PROVIDERS: PCP Internal Medicine; Visit Provider Surgery Vascular Surgery
DX: I83.11 Varicose veins of right lower extremity with inflammation (principal)
CPT/HCPCS: 99214

== ENCOUNTER → 2023-11-24 09:10 | Outpatient (BNVA) | payer OTHER, SELFPAY | PROVIDERS: PCP Internal Medicine; Visit Provider Surgery Vascular Surgery | DX: I83.11 Varicose veins of right lower extremity with inflammation (principal) | CPT/HCPCS: 99212 ==

== ENCOUNTER 2023-12-02 08:28 | Outpatient (AMB) | payer OTHER, SELFPAY ==
--- NOTE | 2023-12-02 09:05 | A.OFFVIS_ITS ---
Intake Vital Signs 12/02/23 09:06 Height 5 ft 6 in Weight 235 lb BMI 37.9 Intake Visit Reasons: Right GSV RFA Allergies haloperidol [From HALDOL] Allergy (Unknown, Verified 12/02/23 09:06) k [facility] TO [facility] Medical History Calcaneal spur of right foot Enthesopathy Nausea Hx of drug overdose Physical exam (~09/02/21) Screening for diabetes mellitus Bilateral edema of lower extremity Encounter to establish care Epidermal cyst Poor historian PTSD (post-traumatic stress disorder) Nausea & vomiting Sebaceous cyst Anxiety and depression ACL (anterior cruciate ligament) tear Surgical History H/O wisdom tooth extraction History of epidermal inclusion cyst excision Family History Father No problems noted. Mother COPD (chronic obstructive pulmonary disease) Sister No problems noted. Brother No problems noted. Maternal Aunt Lung cancer Maternal Uncle Brain mass Social History Housing: House Alcohol intake: former Comment: quit 2009 Patient Tobacco Use Status: Former Tobacco user Tobacco use type: Cigarette Years Smoked: quit 2016 e-Cigarette/Vaping Use: Never Used Second Hand Smoke Exposure: Yes Substance Use Type: Marijuana service: No Current occupational status: disabled Cognitive needs: No Hearing needs: No Vision needs: Yes Physical Exam Vital Signs: BMI result Body Mass Index 37.9 Office Procedures Vascular Office Procedure Details Details: Diagnosis: Varicose veins with inflammation of right leg Procedure: Endovenous radiofrequency ablation of the right great saphenous vein(s) of the lower extremity with Venclose RF ablation Anesthesia: Local infiltration 5 cc, Tumescent 450 cc. Estimated Blood Loss: Minimal The patient was transferred to the procedure suite and the insufficient saphenous vein was mapped by ultrasound and diagrammed on the overlying skin. The depth and diameter of the vein(s) to be treated was documented. The varicose tributary veins and suitable access sites were identified and mapped as well. The patient was then positioned supine on the procedure table. The affected limb was prepped and draped in the usual sterile fashion. The RF catheter was placed on the sterile field, flushed and wiped down, prepared, and connected by a sterile cable. The patient was placed in a supine position and local anesthesia was instilled in the skin overlying the access site. A skin incision was made overlying the identified and mapped great saphenous vein entry site. The vein was accessed using ultrasound guidance and the Seldinger technique, a guide wire was introduced through the needle, which was then exchanged over the guide wire for a 6F sheath, which was secured in place. The guide wire was removed and the sheath was flushed. The RF catheter was placed into the vein through the sheath and preferentially, imaging was used to place the catheter tip just inferior to the superficial epigastric vein to preserve normal physiological flow in that vein. Additionally, it was confirmed by ultrasound guidance that the catheter tip was also placed a minimum of 1.5cm distal to the saphenofemoral junction. After the RF catheter position was verified by ultrasound, tumescent anesthesia was infiltrated, under ultrasound guidance, precisely into the perivenous compartment along the entire length of vein from the entry site to the saphenofemoral junction until a halo of fluid was noted around the vein. The patient was appropriately position. After RF catheter position was again confirmed with ultrasound imaging, and under direct external compression along the length of the heating element, RF energy was applied. The vein was segmentally ablated by heating a 10 cm segment and then indexing the catheter forward by 9.5 cm until the treatment length is completed. Device temperature was maintained at 120 plus or minus 5 degrees C with an initial power level of 4W/cm dropping to below 2W/cm for each treatment. Total vein length treated 25 cm Total cycles of RF 6. Repeat ultrasound of the saphenous vein was performed, confirming successful treatment. The catheter and sheath were withdrawn and hemostasis established with direct pressure. After assuring hemostasis, the skin incision over the saphenous vein was closed with a steristip and a compression wrap was applied from the level of the foot to the most proximal level of the thigh. Discharge instructions were given to the patient inclusive of follow-up ultrasound and recommended follow-up with us. 56273 - Endovenous RF, 1st Vein All charges added?: Procedure code (CPT) selection complete Assessment & Plan Assessment & Plan (1) Varicose veins of right lower extremity with inflammation: Comment: 12/02/2023 - right great saphenous vein radiofrequency ablation Code(s): I83.11 - Varicose veins of right lower extremity with inflammation Plan: See op note Coding Level of Care Code Procedure Only Diagnoses Varicose veins of right lower extremity with inflammation I83.11 CPT Codes Details - Vascular 1: 88180 - Endovenous RF, 1st Vein ([id number])
[2023-12-02 09:06] VITALS: BMI 37.9
== END 2023-12-02 10:22 | disposition home or self-care (01) ==
PROVIDERS: PCP Internal Medicine; Visit Provider Surgery Vascular Surgery
DX: I83.11 Varicose veins of right lower extremity with inflammation (principal)
CPT/HCPCS: 36475

== ENCOUNTER → 2023-12-02 08:28 | Outpatient (BNVA) | payer OTHER, SELFPAY | PROVIDERS: PCP Internal Medicine; Visit Provider Surgery Vascular Surgery | DX: I83.11 Varicose veins of right lower extremity with inflammation (principal) | CPT/HCPCS: 36475 ==

== ENCOUNTER 2023-12-05 12:46 | Outpatient (REF) | payer OTHER, SELFPAY ==
--- NOTE | ~2023-12-05 | US_ITS ---
EXAMINATION: US VENOUS ULTRASOUND WITH DOPPLER LOWER EXTREMITY, RIGHT CLINICAL INFORMATION: Pain in right leg Status post right greater saphenous vein radiofrequency ablation COMPARISON: Venous ultrasound 12/05/2023 TECHNIQUE: Ultrasound of the deep veins is performed from the hip to the calf with compression sonography and color and pulse Doppler assessment. Spectral analysis with color-flow imaging is performed. FINDINGS: There is normal venous compression and respiratory variation. The visualized common femoral vein, superficial femoral vein, profunda femoral vein, popliteal vein, and the posterior tibial and peroneal veins shows no evidence of deep venous thrombosis. Right greater saphenous vein radiofrequency ablation was performed on 11/12/2023. Today, 3 days follow-up, demonstrates that the greater saphenous vein is closed 2.1 cm from the SFJ. There is no extension into the SFJ/SPJ. US/US venous duplex LE RT IMPRESSION: No DVT demonstrated in the right lower extremity. The right greater saphenous vein is closed 2.1 cm from the SFJ.
== END 2023-12-05 12:47 | disposition home or self-care (01) ==
LOC: HO.US 12:46
PROVIDERS: PCP Internal Medicine; Visit Provider Surgery Vascular Surgery
DX: M79.604 Pain in right leg (principal)
CPT/HCPCS: 93971

== ENCOUNTER 2023-12-15 09:51 | Outpatient (AMB) | payer OTHER, SELFPAY ==
[2023-12-15 09:53] VITALS: BMI 37.9
--- NOTE | 2023-12-15 09:53 | MHC.OFFVIS ---
Intake Vital Signs 12/15/23 09:53 Height 5 ft 6 in Weight 235 lb BMI 37.9 Intake Visit Reasons: 2 week follow up Right GSV RFA 12/02/23 Intake Note: 2 week follow up Right GSV RFA 12/02/23, Pt states its still a bit sore and tight feeling. Pt states he does have large VV that appear to be decreasing in size. Accompanied by: Self / Same As Patient Allergies haloperidol [From HALDOL] Allergy (Unknown, Verified 12/15/23 10:07) unk HPI 2 week follow up Right GSV RFA 12/02/23 HPI Details Very pleasant 43-year-old gentleman presents for follow-up status post right great saphenous vein ablation. He reports swelling and discomfort have decreased. He also notes that the cluster varicosities have decreased as well. Now presents for routine postprocedure follow-up. Of note postprocedure ultrasound was negative for DVT. [facility] Medical History Calcaneal spur of right foot Enthesopathy Nausea Hx of drug overdose Physical exam (~09/02/21) Screening for diabetes mellitus Bilateral edema of lower extremity Encounter to establish care Epidermal cyst Poor historian PTSD (post-traumatic stress disorder) Nausea & vomiting Sebaceous cyst Anxiety and depression ACL (anterior cruciate ligament) tear Surgical History H/O wisdom tooth extraction History of epidermal inclusion cyst excision Family History Father No problems noted. Mother COPD (chronic obstructive pulmonary disease) Sister No problems noted. Brother No problems noted. Maternal Aunt Lung cancer Maternal Uncle Brain mass Social History Housing: House Alcohol intake: former Comment: quit 2009 Patient Tobacco Use Status: Former Tobacco user Tobacco use type: Cigarette Years Smoked: quit 2016 e-Cigarette/Vaping Use: Never Used Second Hand Smoke Exposure: Yes Substance Use Type: Marijuana service: No Current occupational status: disabled Cognitive needs: No Hearing needs: No Vision needs: Yes Review of Systems Const All systems reviewed & are unremarkable except as noted in HPI and below Reports no additional complaints ENT Reports Normal hearing present Card Denies chest pain, Denies chest pain at rest, Denies chest pain with activity and Denies pedal edema Resp Denies cough GI Denies abdominal pain Musc Denies abnormal gait, Denies muscle cramps and Denies radiating pain into limb Skin/Breast Denies skin ulcer and Denies wounds Neuro Reports Normal hearing present and Denies abnormal gait Psych Reports no additional complaints Physical Exam Vital Signs: BMI result Body Mass Index 37.9 Const General: cooperative, healthy appearing and comfortable Orientation/consciousness: oriented to person, oriented to place and oriented to time HEENT Head: Yes normal to inspection Neck Neck: Yes normal visual inspection Carotids: no bruits Chest Chest palpation & inspection: normal inspection of the chest Resp Effort & Inspection: normal respiratory effort and able to speak in complete sentences Auscultation: clear to auscultation bilaterally, no crackles, no rales, no rhonchi and no wheezes Cardio Rate: regular rate Rhythm: regular rhythm Heart sounds: S1 normal heart sound present and S2 normal heart sound present Bruits: no carotid bruits Peripheral pulses: Peripheral pulses 2+ throughout GI Inspection: Yes normal to inspection Skin Wounds: no wounds Hair: normal Neuro General: oriented to person, oriented to place and oriented to time Cranial nerves: Yes CN's II-XII intact bilaterally and Yes Normal hearing present Cognition (Neuro): normal cognition Motor exam (neuro): 5/5 motor strength present throughout Extrem Other: venous exam: No significant superficial varicosities or spider telangiectasias, minimal edema General: No clubbing, No cyanosis and No edema Psych Appearance: grossly normal Mental Status: mental status grossly normal Speech and movement: Normal speech and movement present Assessment & Plan Assessment & Plan (1) Varicose veins of right lower extremity with inflammation: Comment: 12/02/2023 - right great saphenous vein radiofrequency ablation Code(s): I83.11 - Varicose veins of right lower extremity with inflammation Plan: The patient has done extremely well with all venous treatments. Patient's may often experience postprocedure phlebitic episodes and I have discussed with the patient use of warm compresses and NSAIDS if tolerated for pain discomfort. In addition, I have discussed continued conservative measures including use of compression, leg elevation, and exercise. The patient was also given an information sheet regarding appropriate use of compression stockings and future purchases. Thank you for allowing us to care for your patient with venous disease. Coding Level of Care Code Est Pt Level 3 (44229) Diagnoses Varicose veins of right lower extremity with inflammation I83.11
== END 2023-12-15 10:29 | disposition home or self-care (01) ==
PROVIDERS: PCP Internal Medicine; Visit Provider Surgery Vascular Surgery
DX: I83.11 Varicose veins of right lower extremity with inflammation (principal)
CPT/HCPCS: 99213

== ENCOUNTER → 2023-12-15 09:51 | Outpatient (BNVA) | payer OTHER, SELFPAY | PROVIDERS: PCP Internal Medicine; Visit Provider Surgery Vascular Surgery | DX: I83.11 Varicose veins of right lower extremity with inflammation (principal) | CPT/HCPCS: 99212 ==

== ENCOUNTER 2023-12-27 11:43 | Outpatient (AMB) | payer OTHER, SELFPAY ==
[2023-12-27 11:45] VITALS: BMI 37.9
--- NOTE | 2023-12-27 11:45 | MHC.OFFVIS ---
Vital Signs 12/27/23 11:45 Height 5 ft 6 in Weight 235 lb BMI 37.9 Intake Visit Reasons: Add-on, issue s/p RFA bump, discoloration/swelling Intake Note: follow up s/p Right GSV RFA 12/02/23 for new bruising/ welt above incision. Also has new pain that he didnt have last visit, just wants to make sure no issues. Accompanied by: Self / Same As Patient Allergies haloperidol [From HALDOL] Allergy (Unknown, Verified 12/27/23 11:47) unk HPI HPI Add-on, issue s/p RFA bump, discoloration/swelling: Details: Very pleasant 43-year-old gentleman presents for follow-up regarding right thigh discomfort. He reports an area of swelling and tenderness and discomfort. Most recently undergone gone right great saphenous vein ablation. He now presents for routine follow-up. [facility] Medical History Calcaneal spur of right foot Enthesopathy Nausea Hx of drug overdose Physical exam (~09/02/21) Screening for diabetes mellitus Bilateral edema of lower extremity Encounter to establish care Epidermal cyst Poor historian PTSD (post-traumatic stress disorder) Nausea & vomiting Sebaceous cyst Anxiety and depression ACL (anterior cruciate ligament) tear Surgical History H/O wisdom tooth extraction History of epidermal inclusion cyst excision Family History Father No problems noted. Mother COPD (chronic obstructive pulmonary disease) Sister No problems noted. Brother No problems noted. Maternal Aunt Lung cancer Maternal Uncle Brain mass Social History Housing: House Alcohol intake: former Comment: quit 2009 Patient Tobacco Use Status: Former Tobacco user Tobacco use type: Cigarette Years Smoked: quit 2016 e-Cigarette/Vaping Use: Never Used Second Hand Smoke Exposure: Yes Substance Use Type: Marijuana service: No Current occupational status: disabled Cognitive needs: No Hearing needs: No Vision needs: Yes Review of Systems Const All systems reviewed & are unremarkable except as noted in HPI and below Reports no additional complaints ENT Reports Normal hearing present Card Denies chest pain, Denies chest pain at rest, Denies chest pain with activity and Denies pedal edema Resp Denies cough GI Denies abdominal pain Musc Denies abnormal gait, Denies muscle cramps and Denies radiating pain into limb Skin/Breast Denies skin ulcer and Denies wounds Neuro Reports Normal hearing present and Denies abnormal gait Psych Reports no additional complaints Physical Exam Vital Signs: BMI result Body Mass Index 37.9 Const General: cooperative, healthy appearing and comfortable Orientation/consciousness: oriented to person, oriented to place and oriented to time HEENT Head: Yes normal to inspection Neck Neck: Yes normal visual inspection Carotids: no bruits Chest Chest palpation & inspection: normal inspection of the chest Resp Effort & Inspection: normal respiratory effort and able to speak in complete sentences Auscultation: clear to auscultation bilaterally, no crackles, no rales, no rhonchi and no wheezes Cardio Rate: regular rate Rhythm: regular rhythm Heart sounds: S1 normal heart sound present and S2 normal heart sound present Bruits: no carotid bruits Peripheral pulses: Peripheral pulses 2+ throughout GI Inspection: Yes normal to inspection Skin Wounds: no wounds Hair: normal Neuro General: oriented to person, oriented to place and oriented to time Cranial nerves: Yes CN's II-XII intact bilaterally and Yes Normal hearing present Cognition (Neuro): normal cognition Motor exam (neuro): 5/5 motor strength present throughout Extrem Other: venous exam: Right thigh with large varicosities and evidence of phlebitis. General: No clubbing, No cyanosis and No edema Psych Appearance: grossly normal Mental Status: mental status grossly normal Speech and movement: Normal speech and movement present Assessment & Plan Assessment & Plan (1) Varicose veins of right lower extremity with inflammation: Comment: 12/02/2023 - right great saphenous vein radiofrequency ablation Code(s): I83.11 - Varicose veins of right lower extremity with inflammation Category: Medical Plan: In short it appears that the patient has had an episode of phlebitis. It does appear to be improving. I did discuss the findings with the patient and discussed with him routine conservative measures including compression elevation and exercise. The patient will follow up with us on an as-needed basis. Thank you for allowing us to assist in his care. If there are any questions or concerns please do not hesitate to contact us. Coding Level of Care Code Est Pt Level 3 (24080) Diagnoses Varicose veins of right lower extremity with inflammation I83.11
== END 2023-12-27 11:58 | disposition home or self-care (01) ==
PROVIDERS: PCP Internal Medicine; Visit Provider Surgery Vascular Surgery
DX: I83.11 Varicose veins of right lower extremity with inflammation (principal)
CPT/HCPCS: 99213

== ENCOUNTER → 2023-12-27 11:43 | Outpatient (BNVA) | payer OTHER, SELFPAY | PROVIDERS: PCP Internal Medicine; Visit Provider Surgery Vascular Surgery | DX: I83.11 Varicose veins of right lower extremity with inflammation (principal) | CPT/HCPCS: 99212 ==

== ENCOUNTER 2024-02-02 22:21 | Emergency (ER) | payer OTHER, SELFPAY ==
[2024-02-02 23:08] VITALS: BP 143/99; PULSE 79; RESP 16; TEMP 37.4; O2SAT 95; BMI 34.5
== END 2024-02-03 00:25 | disposition left against medical advice (07) ==
LOC: HO.ED 02-03 00:06
PROVIDERS: Emergency Provider Emergency Medicine; PCP Internal Medicine
DX: R11.10 Vomiting, unspecified (principal)
CPT/HCPCS: 99281

== ENCOUNTER 2024-03-20 08:20 | Outpatient (AMB) | payer OTHER, SELFPAY ==
[2024-03-20 08:21] VITALS: BP 142/86; PULSE 80; O2SAT 98; BMI 34.0
--- NOTE | 2024-03-20 08:21 | A.OFFPC_ITS ---
Vital Signs 03/20/24 08:21 03/20/24 08:43 Height 5 ft 7 in Weight 217 lb 0.8 oz BMI 34.0 BP 142/86 H 124/90 H Blood Pressure Location Lt brachial Lt brachial Position Sitting Sitting Pulse 80 Pulse Source Pulse Oximeter Pulse Oximetry (%) 98 Oxygen Delivery Method Room Air Intake Visit Reasons: varicose veins, IGT Line Patroller Required: No Allergies haloperidol [From HALDOL] Allergy (Unknown, Verified 03/20/24 08:22) unk Medication List - Last Reconciled 03/20/24 by Patsy Sheffield MD ibuprofen 800 mg PO Q8H ketoconazole 2% 1 appl topical 2XW methadone 130 mg PO DAILY ondansetron HCl 4 mg PO BEDTIME PRN polyethylene glycol 3350 (Miralax) 17 grams PO DAILY Tobacco use date assessed: 09/20/23 Dental Screening Dental Screen Date: 09/20/23 HPI varicose veins, IGT HPI Details 43-year-old obese male with impaired glu cose tolerance hypercholesterolemia generalized anxiety disorder with a history of polysubstance abuse and psoriasis coming in for follow-up. Last seen in September 2023. Noted january ER visit for vomiting and constipation. No notes seen. Patient was seen by the vascular surgeon in December status post right great saphenous vein radiofrequency ablation 05/25/2024 new bruising diagnosis of varicose veins right lower extremity with inflammation phlebitis conservative treatment with compression. [facility] Medical History (Updated 03/20/24 @ 08:46 by Patsy Sheffield MD) Seborrhea Bilateral leg pain Bilateral shoulder pain Myalgia Epidermal cyst Bilateral foot pain Calcaneal spur of right foot Enthesopathy Nausea Hx of drug overdose Physical exam (~09/02/21) Screening for diabetes mellitus Bilateral edema of lower extremity Encounter to establish care Poor historian PTSD (post-traumatic stress disorder) Nausea & vomiting Sebaceous cyst Anxiety and depression ACL (anterior cruciate ligament) tear Surgical History H/O wisdom tooth extraction History of epidermal inclusion cyst excision Family History Father No problems noted. Mother COPD (chronic obstructive pulmonary disease) Sister No problems noted. Brother No problems noted. Maternal Aunt Lung cancer Maternal Uncle Brain mass Social History Housing: House Alcohol intake: former Comment: quit 2009 Patient Tobacco Use Status: Former Tobacco user Tobacco use type: Cigarette Years Smoked: quit 2017 e-Cigarette/Vaping Use: Never Used Second Hand Smoke Exposure: Yes Substance Use Type: Marijuana service: No Current occupational status: disabled Cognitive needs: No Hearing needs: No Vision needs: Yes Questionnaire Thrive Questionnaire Date Thrive assessed: 09/20/23 AUDIT C Alcohol Use Questionnaire (AUDIT-C) 1. How often do you have a drink containing alcohol?: Never 2. How many drinks containing alcohol do you have on a typical day when you are drinking?: 1 or 2 3. How often do you have six or more drinks on one occasion?: Never Total Score: 0 JANE-7 AMB Questionnaire JANE-7 Date JANE - 7 assessed: 09/20/23 Source: Developed by Drs. Artemio Villanueva, Concepcion Maza, Bear Carnes and colleagues, with an educational malini from [employer]. Physical exam (Primary Care) Vital Signs: Last Vital Signs Pulse 80 03/20/24 08:21 BP 142/86 H 03/20/24 08:21 Pulse Ox 98 03/20/24 08:21 Oxygen Delivery Method Room Air 03/20/24 08:21 BMI result Body Mass Index 34.0 Tobacco/Smoking Status: Tobacco use Status Tobacco use date assessed 09/20/23 03/20/24 08:28 Patient Tobacco Use Status Former Tobacco user 03/20/24 08:28 Tobacco use type Cigarette 03/20/24 08:28 e-Cigarette/Vaping Use Never Used 03/20/24 08:28 Thrive Assessment: Date of Thrive Assessment Date Thrive assessed 09/20/23 03/20/24 08:28 Const General: alert; No acute distress Eyes Conjunctivae: conjunctivae normal Resp Auscultation: clear to auscultation bilaterally Cardio Rate: regular rate Rhythm: regular rhythm GI Inspection: Yes normal to inspection Extrem General: Yes normal to inspection and No edema Assessment and Plan Assessment & Plan (1) Varicose veins of right lower extremity with inflammation: Comment: 12/02/2023 - right great saphenous vein radiofrequency ablation Code(s): I83.11 - Varicose veins of right lower extremity with inflammation Plan: Patient follows up with the vascular surgeon. When sitting down elevate the legs, exercise, and support stockings (2) Impaired glucose tolerance: Code(s): R73.02 - Impaired glucose tolerance (oral) Plan: Decrease the amount of carbohydrate intake, pasta, bread, rice and potatoes are all sugar and that is aside from all the sweet stuff, remember that fruits are good but they are Sweet also. Discussed about repeating blood work (3) Hypercholesterolemia: Code(s): E78.00 - Pure hypercholesterolemia, unspecified Plan: Avoid fried foods, chicken skin, eggs, butter margarine, pastries and meat. Be it pork or beef they have a lot of cholesterol LDL goal of less than 130 and triglyceride of less than 150 (4) Obesity: Code(s): E66.9 - Obesity, unspecified Plan: Diet and exercise (5) Blood pressure elevated without history of HTN: Code(s): R03.0 - Elevated blood-pressure reading, without diagnosis of hypertension Plan: blood pressure to monitor and record Medications: New polyethylene glycol 3350 (Miralax) 17 grams PO DAILY 100 ea 2RF F41.1 - Generalized anxiety disorder Coding Level of Care Code Est Pt Level 4 (49733) Diagnoses Varicose veins of right lower extremity with inflammation I83.11 Impaired glucose tolerance R73.02 Hypercholesterolemia E78.00 Obesity E66.9 Blood pressure elevated without history of HTN R03.0
[2024-03-20 08:43] VITALS: BP 124/90
== END 2024-03-20 08:53 | disposition home or self-care (01) ==
PROVIDERS: PCP Internal Medicine; Visit Provider Internal Medicine
DX: E78.00 Pure hypercholesterolemia, unspecified (principal); E66.9 Obesity, unspecified; Z68.34 Body mass index [BMI] 34.0-34.9, adult; I83.11 Varicose veins of right lower extremity with inflammation; R73.02 Impaired glucose tolerance (oral); R03.0 Elevated blood-pressure reading, without diagnosis of hypertension
CPT/HCPCS: 99214

== ENCOUNTER 2024-09-24 17:17 | Outpatient (AMB) | payer OTHER, SELFPAY ==
--- NOTE | 2024-09-24 17:17 | MHC.PC.OV ---
Vital Signs 09/24/24 17:19 Height 5 ft 7 in Weight 233 lb 8 oz BMI 36.6 BP 146/100 H Blood Pressure Location Lt brachial Position Sitting Respiration 16 Pulse 77 Pulse Source Pulse Oximeter Temp 96.9 F Temp Source Temporal Artery Scan Pulse Oximetry (%) 95 Oxygen Delivery Method Room Air Intake Visit Reasons: Annual Exam Allergies haloperidol [From HALDOL] Allergy (Unknown, Verified 03/20/24 08:22) unk Medication List - Last Reconciled 09/24/24 by Patsy Sheffield MD ketoconazole 2% 1 appl topical 2XW methadone 130 mg PO DAILY ondansetron HCl 4 mg PO BEDTIME PRN polyethylene glycol 3350 (Miralax) 17 grams PO DAILY Tobacco use date assessed: 09/20/23 Dental Screening Dental Screen Date: 09/20/23 HPI Annual Exam HPI Details bp at home. nausea ? The patient is a 44year-old obese male presenting to discuss several chronic health issues including hypertension, hyperlipidemia, and methadone dependence. He reports longstanding essential hypertension, noting fluctuations between clinic readings and home readings, with home measures consistently normal. Hyperlipidemia has been mildly elevated on previous assessments, though current cholesterol levels are stable without new interventions. The patient acknowledges weight gain after initial loss, attributing recent lack of exercise to a challenging year. 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 This nausea has persisted since his coma episode and does not vary significantly despite dosage adjustments. He has undergone both upper gastrointestinal series and endoscopy, with mild flap damage, attributed to intubation, detected but no acute findings to justify symptoms. PPI therapy trials have been less effective than daily MiraLAX use, which ameliorates symptoms temporarily. His psoriasis is managed with two topical lotions, one being a vitamin D derivative, and periodic application of a steroid cream. Methadone dependence is noted but maintained under control with current dosing, though there is contemplation of tapering. The patient denies any new medication allergies since the last visit. There are no symptoms of dizziness or prior syncopal episodes, yet nausea persists intermittently. - Encouraged regular exercise and healthy eating habits. - Stress reduction and anxiety management suggested. - Identified seasonal flu risks; discussed influenza vaccination considerations. - Discussed importance of COVID-19 vaccination, noting prior completion. - Screen for family history of significant health issues including cancer. - Reinforce consistent hydration, especially correlated to digestive health. - Previous use of recreational drugs; currently uses medical cannabis in edible form. - Former smoker, now non-smoking. - Attends Alcoholics Anonymous meetings. - Currently not consuming alcohol. - Reports a lack of sleep due to anxiety and panic recurrences; disrupted sleep pattern noted. - General: Reports fatigue and anxiety contributing to disrupted sleep. - Gastrointestinal: Reports heartburn and intermittent dysphagia. - Genitourinary: Reports waking up multiple times nightly to urinate. - Neurological: Denies dizziness or syncope. [facility] Medical History (Updated 03/20/24 @ 08:46 by Patsy Sheffield MD) Seborrhea Bilateral leg pain Bilateral shoulder pain Myalgia Epidermal cyst Bilateral foot pain Calcaneal spur of right foot Enthesopathy Nausea Hx of drug overdose Physical exam (~09/02/21) Screening for diabetes mellitus Bilateral edema of lower extremity Encounter to establish care Poor historian PTSD (post-traumatic stress disorder) Nausea & vomiting Sebaceous cyst Anxiety and depression ACL (anterior cruciate ligament) tear Surgical History H/O wisdom tooth extraction History of epidermal inclusion cyst excision Family History Father No problems noted. Mother COPD (chronic obstructive pulmonary disease) Sister No problems noted. Brother No problems noted. Maternal Aunt Lung cancer Maternal Uncle Brain mass Social History Housing: House Alcohol intake: former Comment: quit 2009 Patient Tobacco Use Status: Former Tobacco user Tobacco use type: Cigarette Years Smoked: quit 2016 e-Cigarette/Vaping Use: Never Used Second Hand Smoke Exposure: Yes Substance Use Type: Marijuana service: No Current occupational status: disabled Cognitive needs: No Hearing needs: No Vision needs: Yes Questionnaire PHQ-9 Over the last 2 weeks, how often have you been bothered by any of the following problems? 1. Little interest or pleasure in doing things: nearly every day 2. Feeling down, depressed, or hopeless: nearly every day 3. Trouble falling or staying asleep, or sleeping too much: nearly every day 4. Feeling tired or having little energy: more than half the days 5. Poor appetite or overeating: nearly every day 6. Feeling bad about yourself - or that you are a failure or have let yourself or your family down: more than half the days 7. Trouble concentrating on things, such as reading the newspaper or watching television: more than half the days 8. Moving or speaking so slowly that other people could have noticed. Or the opposite - being so fidgety or restless that you have been moving around a lot more than usual: more than half the days 9. Thoughts that you would be better off or of hurting yourself in some way: several days Total score: 21 18257 - PHQ-9 Billing: Yes Source: Developed by Drs. Artemio Villanueva, Concepcion Maza, Bear Carnes and colleagues, with an educational malini from [employer]. Thrive Questionnaire Date Thrive assessed: 09/24/24 I am a: Patient What is your living situation today?: I have a steady place to live Within the past 12 months, did the food you bought not last and you didn't have the money to get more?: Never true Within the past 12 months, did you worry whether your food would run out before you got money to buy more?: Never true Do you have trouble paying for medicines?: No Do you have trouble getting transportation to medical appointments?: No Do you have trouble paying your heating and electricity bill?: No Do you have trouble taking care of your child, family member or friend?: No Do you have trouble with day-to-day activities such as bathing, preparing meals, shopping, managing finances, etc.?: No Are you currently unemployed and looking for a job?: No Are you interested in more education?: No Please select the resources that you would like help with: None Currently or been in a relationship where the following occur: No concerns reported THRIVE Score: 0 AUDIT C Alcohol Use Questionnaire (AUDIT-C) 1. How often do you have a drink containing alcohol?: Never 3. How often do you have six or more drinks on one occasion?: Never Total Score: 0 JANE-7 AMB Questionnaire JANE-7 Date JANE - 7 assessed: 09/24/24 Feeling nervous, anxious, or on edge: 3 = Nearly every day Not being able to stop or control worryin = More than half the days Worrying too much about different things: 2 = More than half the days Trouble relaxin = Nearly every day Being so restless that it is hard to sit still: 2 = More than half the days Becoming easily annoyed or irritable: 3 = Nearly every day Feeling afraid as if something awful might happen: 3 = Nearly every day Total JANE-7 score (0-4 normal; 5-9 mild; 10-14 moderate; 15-21 severe): 18 Source: Developed by Drs. Artemio Villanueva, Concepcion Maza, Bear Carnes and colleagues, with an educational malini from [employer]. JANE-7 Assessment Billing JANE-7 Assessment Tool: JANE-7 Assessment 02680 Review of Systems Const Denies poor appetite and Denies weakness Eyes Denies no additional complaints ENT Reports Normal hearing present, Denies dizziness, Denies nasal congestion, Denies tinnitus and Denies sore throat Card Denies chest pain, Denies syncope, Denies rapid heart rate and Denies dyspnea Resp Denies cough and Denies dyspnea GI Denies change in stool character, Reports constipation, Denies diarrhea, Denies nausea and Denies vomiting Denies dysuria and Denies urinary frequency Neuro Reports Normal hearing present, Denies confusion, Denies dizziness, Denies syncope and Denies weakness Psych Denies confusion Physical exam (Primary Care) Vital Signs: Last Vital Signs Temp 96.9 F 09/24/24 17:19 Pulse 77 09/24/24 17:19 Resp 16 09/24/24 17:19 BP 146/100 H 09/24/24 17:19 Pulse Ox 95 09/24/24 17:19 Oxygen Delivery Method Room Air 09/24/24 17:19 BMI result Body Mass Index 36.6 Tobacco/Smoking Status: Tobacco use Status Tobacco use date assessed 09/20/23 09/24/24 17:18 Patient Tobacco Use Status Former Tobacco user 09/24/24 17:18 Tobacco use type Cigarette 09/24/24 17:18 e-Cigarette/Vaping Use Never Used 09/24/24 17:18 PHQ-9: PHQ-9 Score PHQ-9: Total score 21 09/24/24 17:24 Thrive Assessment: Date of Thrive Assessment Date Thrive assessed 09/24/24 09/24/24 17:18 Currently or been in a relationship where the following occur: No concerns reported Const General: No confusion Orientation/consciousness: No confusion HENMT Head: Yes normocephalic Ears: external ears normal and TM's normal bilaterally Face and sinus: Yes normal facial exam Mouth: moist mucous membranes Throat: Yes tonsils normal Eyes Conjunctivae: conjunctivae normal Pupils: Equal, round and reactive pupils present and Pupil accommodation reflex normal Direct Ophthalmoscopy: normal light reflex Neck Neck: No lymphadenopathy Thyroid: Thyroid normal Chest Chest palpation & inspection: normal inspection of the chest Resp Effort & Inspection: normal respiratory effort and no audible wheezes Auscultation: clear to auscultation bilaterally, no crackles, no wheezes and lung sounds not diminished Cardio Rate: regular rate Rhythm: regular rhythm Peripheral pulses: radial pulses present and dorsalis pedis present GI Other: Visual exam is negative Palpation (GI): no masses Auscultation: normal bowel sounds and normoactive bowel sounds Male General Exam: Yes normal external exam Skin General skin exam: no rashes or lesions noted Rashes: no rashes Neuro General: No confusion Cranial nerves: Yes Equal, round and reactive pupils present and Yes Normal hearing present Cognition (Neuro): normal cognition Gait exam (Neuro): Normal gait present Motor exam (neuro): 5/5 motor strength present throughout Deep tendon reflexes (DTR's): Right brachioradialis reflex intensity grade: 2+, Left brachioradialis reflex intensity grade: 2+, Right patellar reflex intensity grade: 2+ and Left patellar reflex intensity grade: 2+ Extrem General: No edema Office Procedures Flu Questionnaire Does the patient have a severe egg allergy?: No Immunizations Fluarix Triv [id number] (PF) 45 mcg (15 mcg x 3)/0.5 mL IM syringe Performing Provider: Patsy Sheffield MD [place] [facility] Documented (not given) by: SANDOVAL Alejo on 09/24/24 17:27 Reason Not Given: Patient Refused Coding Level of Care Code Est Pt Prev Care 40-64y(53346) Diagnoses Annual physical exam Z00.00 Hypercholesterolemia E78.00 Obesity E66.9 Impaired glucose tolerance R73.02 Blood pressure elevated without history of HTN R03.0 Additional Codes JANE-7 Assessment Billing - JANE-7 Assessment Tool: JANE-7 Assessment 77211 ([id number]) PHQ-9 - 83563 - PHQ-9 Billing: Yes ([id number]) Assessment & Plan Assessment & Plan (1) Annual physical exam: Code(s): Z00.00 - Encounter for general adult medical examination without abnormal findings Category: Medical (2) Hypercholesterolemia: Code(s): E78.00 - Pure hypercholesterolemia, unspecified Category: Medical (3) Obesity: Code(s): E66.9 - Obesity, unspecified Category: Medical (4) Impaired glucose tolerance: Code(s): R73.02 - Impaired glucose tolerance (oral) Category: Medical (5) Blood pressure elevated without history of HTN: Code(s): R03.0 - Elevated blood-pressure reading, without diagnosis of hypertension Category: Medical Plan - Continue monitoring blood pressure levels at home; consider adjustments if clinically indicated. - Encourage further weight management through increased physical activity and diet adjustment. - Maintain current methadone dosing, monitor for possible tapering after assessing withdrawal risk. - Consider psychiatric consult for anxiety and sleep disturbances, a referral was initiated. - Continue psoriasis management with current topical treatments. - Suggest the trial of lifestyle modifications to enhance sleep hygiene and minimize nocturnal urination. I discussed with the patient the stability of his hypertension management, reassuring him of the reliability of home-based blood pressure monitoring. We reviewed his progress with hyperlipidemia and emphasized the need for ongoing lifestyle modifications, including dietary measures and physical activity. The patient's history of methadone-induced constipation was addressed, with an emphasis on the continued use of MiraLAX, though options for gradually tapering methadone will be explored if feasible and safe. We spoke of the need for psychiatric input to manage escalating anxiety and sleep issues. The patient was advised to limit fluid intake before bedtime to reduce nocturnal urination frequency. - Monitor blood pressure regularly at home, and report significant changes. - Engage in regular physical activity and consume a balanced, healthy diet. - Continue taking prescribed medications including MiraLAX. - Limit fluid intake in the evening to minimize nighttime urination. - Maintain appointments for follow-up blood work. - Consult with a psychiatrist as referred for anxiety and sleep management. - Use ear drops if necessary for earwax management. Orders: Orders Influenza [id number] Immunization Today Z23 - Encounter for immunization Referrals Psychiatry Outpatient Consultation Service F43.10 - Post-traumatic stress disorder, unspecified
[2024-09-24 17:19] VITALS: BP 146/100; PULSE 77; RESP 16; TEMP 36.1; O2SAT 95; BMI 36.6
--- OUTSIDE RECORDS SUMMARY | 2024-09-24 19:48 | XMS_ITS | Data Portability ---
Author Organization [place] - [facility] [place] Address [address] [place] [address] Care Team Providers Care Process Supervisor Name Role Phone SHELBY REIS Primary Care Provider SHELBY REIS Referring Provider [phone] [address] [place] [address] Services Assessment No assessment recorded. Plan of Treatment Reminders Order Date Submit Date Provider Last Modified By Organization Details Last Modified Time Details Appointments None recorded. Lab None recorded. Referral None recorded. Procedures None recorded. Surgeries None recorded. Imaging None recorded. Medication Orders Augmentin 875 mg-125 mg tablet 2017 018 [email or web address] [id number], [address] [place], [address], 9 10:43:01 Tessalon Perles 100 mg capsule 2017 018 [email or web address] [id number], [address] [place], [address], 9 10:43:06 naproxen 500 mg tablet 2018 019 INTERFACE [id number], [address] [place], [address], 9 12:02:41 Patient TargetsNo targets recorded. Patient Instructions Encounter Date Encounter Id Patient Instructions Last Modified By Organization Details Last Modified Time 08/17/2018 [id number] Acute Sinusitis: Care Instructions avaine Not available 08/17/2018 13:56:30 10/20/2018 [id number] Skin Cyst: Care Instructions [email or web address] Not available 10/20/2018 11:14:29 10/25/2018 [id number] Skin Cyst: Care Instructions [email or web address] Not available 10/25/2018 14:48:02 11/20/2018 [id number] muscle strain: care instructions [email or web address] Not available 11/20/2018 12:02:40 Please follow up with your PCP if symptoms has not resolve in 1 week. Not available 11/20/2018 12:02:26 You have had an Urgent Care Visit which is designed to address acute issues. It does not represent an exhaustive evaluation of your symptom complex, but is an attempt to treat and manage the most likely cause of your most pressing physical issues. If you are not improved in the time frame that we have discussed, please seek the advice of your PCP who is in a position to order further diagnostic testing and possible specialist consultation. If you are rapidly deteriorating despite the treatment recommendations please do not wait to see your PCP and do proceed to the closest ER where a comprehensive evaluation including consideration to lab and other diagnostic testing as well as consultation is more expeditiously accessible. If you were prescribed medications they have been directly submitted to your pharmacy on file. Please make sure you finish all your medications and if you develop major side effects related to them please do stop taking them and check with your PCP to see if you need to get an alternative medication. [email or web address] Not available 11/20/2018 12:02:39 Reason for Referral None Reported. Results Created Date Observation Date Name Description Value Unit Range Abnormal Flag Note LastModifiedBy Organization Detail LastModifiedTime 10/25/19 19 10/25/2018 surgi ellis patho logy study surgical ----- ----- ----- ----- ----- ----- ----- ----- ----- ----- ----- ----- ----- ----- ----- ----- ----- ----- -- PATIE NT: Carina BRUSH 987 LOC: DOO U #: [id number] AGE/S X: 38/M ROOM: RE10/[address]: Jarrod Peguero DO : 06/30 BED: DIS: STATU S: DEP CLI PROCE DURE/ OPERA TION PERFO RMED: SKIN BX SPEC #: [id number] RECD: 10/26-0 959 STATU S: SOUT REQ #: [id number] MARLENA: 10/25-[address]: Celestina Pegueroo mas DO ENTER ED: 10/26-1 000 SP TYPE: Surgi ellis OTHR DR: Colin Talbot n File TISSU E:Ski n ----- ----- ----- ----- ----- ----- ----- ----- ----- ----- ----- ----- ----- ----- ----- ----- ----- ----- -- Final Diagn osis SKIN, UPPER MID BACK, BIOPS Y: - Epide rmal inclu julien cyst. Gross Exami natio n Recei amanda in forma justyn, label ed Adriano watersFrancisco Javier 06/30. It consi sts of a skin ellip se measu ring 2 x 0.4 x 2 cm. The skin surfa ce has a punct ure rosenda in the cente r of the tissu e measu ring 0.[address] and is gross ly unrem arkab le. The under lying tissu e ident ifies a cyst with attac hed yello w, fatty tissu e measu ring 1.[address] and the cyst wall measu res 1 cm. Withi n the speci men is a tanni sh, soft mater ial. The speci men is inked . RS, one casse tte. (MKD) 10/27 JILLIAN Odell MD 10/27 0596 ----- ----- ----- ----- ----- ----- ----- ----- ----- ----- ----- ----- ----- ----- ----- ----- ----- ----- -- Not Available [facility] [address] [place] [address], [address], 10/27/2018 13:57:00 Result Notes None recorded. Problems No Known Problems Procedures Surgical History Date Name Laterality Status Provider Name and Address Organization Details Recorded Time 9 Excision and closure completed Zeus Solorzano DO [address] [place], [address], [facility] 10/25/2018 14:47:11 Imaging Results None recorded. Procedure Notes None recorded. Medical Equipment None Reported. Allergies Allergen ID Allergen Name Allergen Category Reaction Reaction Severity Criticality Documentation Date Start Date Code Code System Note Provider Name and Address Organization Details Recorded Time 403883 Haldol medicatio n Not available Not available Not available 08/17/2018 98089 9 [facility] 8 13:26:06 Medications Name Sig Start Date Stop Date Status Note LastModified by Organization Details LastModified Time Augmentin 875 mg-125 mg tablet Take 1 tablet every 12 hours by oral route for 10 days. 10/20 completed Not Available Not Available Not Available sulfamethoxa zole 800 mg-trimethop rim 160 mg tablet 10/20 completed Not Available Not Available Not Available Tessalon Perles 100 mg capsule Take 1 capsule 3 times a day by oral route for 5 days. 10/20 completed Not Available Not Available Not Available naproxen 500 mg tablet Take 1 tablet twice a day by oral route for 7 days. active Not Available Not Available No t Available Vitals Date Recorded Body weight Provider Name an d Address Organization Details Last Updated DateTime 08/17/[address] [facility] 08/17/2018 13:25:53 Date Recorded Body temperature Provider Name a nd Address Organization Details Last Updated DateTime 08/17/2018 98 [degF] Afua Marcelo [facility] 08/17/2018 13:27:43 Date Recorded Heart rate Provider Name an d Address Organization Details Last Updated DateTime 08/17/2018 79 /min Aufa Marcelo [place] [facility] 08/17/2018 13:27:45 Date Recorded Oxygen saturation Oxygen saturation in Arterial blood by Pulse oximetry Provider Name and Address Organization Details Last Updated DateTime 08/17/2018 97 % 97 % [facility] 08/17/2018 13:27:49 Date Recorded Body height Provider Name an d Address Organization Details Last Updated DateTime 10/20/2018 170.18 cm Guerita KwonDANI [facility] 10/20/2018 10:55:54 Date Recorded Body mass index (BMI) Body weight Provider Name and Address Organization Details Last Updated DateTime 10/20/2018 35.6 kg/m2 185453.19 katlin [facility] 10/20/2018 10:55:58 Date Recorded Heart rate Provider Name an d Address Organization Details Last Updated DateTime 10/20/2018 92 /min Guerita Kwon MA [facility] 10/20/2018 10:56:01 Date Recorded Body height Provider Name an d Address Organization Details Last Updated DateTime 10/25/2018 170.18 cm Guerita Kwon DANI [facility] 10/25/2018 13:34:31 Date Recorded Body mass index (BMI) Body weight Provider Name and Address Organization Details Last Updated DateTime 10/25/2018 35.7 kg/m2 122848.06 katlin Guerita Kwon [place] [facility] 10/25/2018 13:36:38 Date Recorded Body height Provider Name an d Address Organization Details Last Updated DateTime 11/08/2018 170.18 cm Guerita Kwon [place] [facility] 11/08/2018 11:28:45 Date Recorded Body mass index (BMI) Body weight Provider Name and Address Organization Details Last Updated DateTime 11/08/2018 36.7 kg/m2 108329.05 katlin [facility]i Rajan [facility] 11/08/2018 11:38:06 Date Recorded Heart rate Provider Name an d Address Organization Details Last Updated DateTime 11/08/2018 87 /min Juli Rajan MA [facility] 11/08/2018 11:38:50 Date Recorded Body height Provider Name an d Address Organization Details Last Updated DateTime 11/20/2018 170.18 cm Purnima Pope DANI Yusuf [facility] 11/20/2018 11:19:38 Date Recorded Body mass index (BMI) Body weight Provider Name and Address Organization Details Last Updated DateTime 11/20/2018 35.8 kg/m2 088896.86 g Purnima Pope DANI [facility] 11/20/2018 11:23:27 Date Recorded Body temperature Provider Name a nd Address Organization Details Last Updated DateTime 11/20/2018 98.1 [degF] Purnima Pope DANI Yusuf [facility] 11/20/2018 11:25:26 Date Recorded Oxygen saturation Oxygen saturation in Arterial blood by Pulse oximetry Provider Name and Address Organization Details Last Updated DateTime 11/20/2018 96 % 96 % Purnima Pope DANI [facility] 11/20/2018 11:25:33 Date Recorded Heart rate Provider Name an d Address Organization Details Last Updated DateTime 11/20/2018 82 /min Purnima Pope DANI Yusuf [facility] 11/20/2018 11:25:35 Date Recorded Systolic blood pressure Diastolic blood pressure Provider Name and Address Organization Details Last Updated DateTime 08/17/2018 130 mm[Hg] 62 mm[Hg] Afua Marcelo [facility] 08/17/2018 13:28:55 Date Recorded Systolic blood pressure Diastolic blood pressure Provider Name and Address Organization Details Last Updated DateTime 10/20/2018 124 mm[Hg] 82 mm[Hg] Guerita Kwon [place] [facility] 10/20/2018 10:55:50 Date Recorded Systolic blood pressure Diastolic blood pressure Provider Name and Address Organization Details Last Updated DateTime 11/08/2018 141 mm[Hg] 89 mm[Hg] Juli Rajan MA [facility] 11/08/2018 11:37:30 Date Recorded Systolic blood pressure Diastolic blood pressure Provider Name and Address Organization Details Last Updated DateTime 11/20/2018 122 mm[Hg] 82 mm[Hg] Purnima Pope [facility] 11/20/2018 11:26:30 Social History Question Answer Notes LastModified by Organizat ion Details LastModified Time Tobacco Smoking Status Former Smoker Afua haley [place] - [facility] 08/17/2018 13:27:08 What Was The Date Of Your Most Recent Tobacco Screening? 11/20/2018 Information n ot available 03/29/2019 Sex: Unknown Functional Status None recorded. Mental Status None recorded. Family History Nothing Reported. Medical History No medical history recorded. Past Encounters Encounter ID Performer Location Encounter Start Date Encounter Closed Date Diagnosis/Indication Diagnosis SNOMED-CT Code Diagnosis ICD10 Code Diagnosis Note [id number] Stephanie Marc NP [facility] [address] [facility],[address] [place] [address] 06/27/2018 15:12:40 07/12/2018 12:03:36 [id number] Zeus Lazo III, MD [facility] [address] [place] [address] 08/17/2018 13:21:44 08/17/2018 13:57:06 Persistent cough 071135304 R05 Acute sinusitis 48679254 J01.90 38 year old male former smoker with sinus congestion and cough for 4 weeks Suspect bacterial infection at this time. Will treat with antibiotic as below. Educated pt on side effects, including nausea and diarrhea. Recommende d pt takes a probiotic daily or eats yogurt while on antibiotic therapy. Encouraged pt to stay well hydrated and rest. Recommend saline nasal spray/nett i pot, Tylenol/Ib uprofen PRN. Pt to f/u in 3-5 days if symptoms are not improving or have worsened. Cough 04471804 R05 will order medication for cough, advise rest, hydration, humidifica tion, cough drops [id number] Zeus polanco DO [facility] [address],[facility] [place] [address] 10/20/2018 10:32:24 10/20/2018 11:06:27 Epidermoid cyst 299851508 L72.0 Book for in office excision Consent obtained [id number] Zeus polanco DO [facility] [address] [facility] [place] [address] 10/25/2018 13:01:22 10/25/2018 14:07:17 Epidermoid cyst 705003321 L72.0 Excision done in office Follow up in office [id number] Zeus polanco DO [facility] [address] [facility] [place] [address] 11/08/2018 11:25:30 11/08/2018 11:38:21 Postoperative visit 687567002 Z09 ok to d/c and follow up prn. [id number] Zeus Lazo III, MD [facility] [address] [place] [address] [place] [address] 11/20/2018 11:18:00 11/20/2018 12:03:46 Strain of calf muscle 771540986 S86.111A Patient is a 38 y.o. male who came here today with complaint of calf pain after he injured in at work. On my assessment , no swelling, erythema, tenderness or warm to touch with palpation. NO ecchymosis noted. Pain increased with weight bearing. With this, I will start him on Naproxen for 7 days. Also advised to use cool or heal pack for comfort and pain. Rest and elevation may resolve or prevent swelling. Patient unable to take muscle relaxers due, he is a recovery facility at this time. Please follow up with your PCP if symptoms has not resolve in 1 week. Health Concerns Section Related Observation LastModified by Organization Detai ls LastModified Time None Recorded Concern Status LastModified by Organization Details LastModified Time None Recorded Advance Directives Directive None Recorded Payers Encounter Date Sequence Insurance Name Policy Number Policy Acosta Covered Member ID Acosta Member ID Guarantor Name 08/17/2018 1 [facility] ([facility] Francisco Javier Garrett [id number] Francisco Javier Brooks 10/20/2018 1 [facility] ([facility]) Francisco Javier Garrett [id number] Francisco Javier Brooks 10/25/2018 1 [facility] ([facility]) Francisco Javier Garrett [id number] Francisco Javier Brooks 11/08/2018 1 [facility] Francisco Javier Garrett [id number] Francisco Javier Brooks 11/20/2018 [employer] [place] Alan rFancisco Javier Brooks Notes Date Note Type Note Provider Name and Address Organization Details Recorded Time 08/17/2018 text/html pt presents to [facility] with a recurring cold that has last 3-4 weeks. Stuffy nose, sore throat, fatigued, aches. No fevers. Took morena roopaer daytime sever cold 6:00am. HC Zeus Lazo III, MD [address] [place], [address], [facility] 08/17/2018 17:24:24 10/20/2018 text/html 38 yo M with history of back cyst for the past 5 years. Last week it became infected and was placed on antibiotics by his PCP. Now healilng well. DO Prasanna [facility] [facility] [place], [address], [facility] 10/20/2018 11:14:43 10/25/2018 text/html 38 yo M with history of a back cyst presenting for elective resection in office. No interval change. DO Prasanna [facility] [facility] [place], [address], [facility] 10/25/2018 14:48:22 11/08/2018 text/html 38 yo M with histroy of back cyst s/p excision. Incision is healing well. DO Prasanna [facility] [facility] [place], [address], [facility] 11/08/2018 11:48:50 11/20/2018 text/html pt presents at [facility] with a right calf injury, started at work on Tuesday, states he stepped back at a weird angle, but has gotten worse today, and fell to the ground this morning. wd Zeus Lazo III, MD [address] [place], [address], [facility] 11/20/2018 12:31:30
== END 2024-09-24 18:04 | disposition home or self-care (01) ==
PROVIDERS: PCP Internal Medicine; Visit Provider Internal Medicine
DX: Z00.00 Encounter for general adult medical examination without abnormal findings (principal); E78.00 Pure hypercholesterolemia, unspecified; E66.9 Obesity, unspecified; Z68.36 Body mass index [BMI] 36.0-36.9, adult; R73.02 Impaired glucose tolerance (oral); R03.0 Elevated blood-pressure reading, without diagnosis of hypertension

== ENCOUNTER → 2024-09-24 17:17 | Outpatient (BNVA) | payer OTHER, SELFPAY | PROVIDERS: PCP Internal Medicine; Visit Provider Internal Medicine | DX: Z00.00 Encounter for general adult medical examination without abnormal findings (principal); E78.00 Pure hypercholesterolemia, unspecified; E66.9 Obesity, unspecified; Z68.36 Body mass index [BMI] 36.0-36.9, adult; R73.02 Impaired glucose tolerance (oral); R03.0 Elevated blood-pressure reading, without diagnosis of hypertension; Z71.3 Dietary counseling and surveillance | CPT/HCPCS: 96127; 99396 ==

== ENCOUNTER 2025-04-03 13:57 | Outpatient (AMB) | payer OTHER, SELFPAY ==
--- OUTSIDE RECORDS SUMMARY | 2025-04-03 14:38 | XMS_ITS | Clinical Summary ---
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 Name Role Phone Unavailable Primary Care Provider Unavailabl e Immunizations Immunization Administration Dates Next Due DTP 01/02/1985, 2,1980,1980,1980 MMR 01/22/1992,10/10/1981 OPV 01/02/1985, 2,1980,1980,1980 Td (adult) (Tenivac), 5 Lf t etanus toxoid, PF, adsorbed 01/11/1995 Social History Tobacco Use Types Packs/Day Years Used Date Smoking Tobacco: Never Assessed Sex and Gender Information Value Date Recorded Sex Assigned at Not on file Legal Sex Male 3:57 PM EDT Gender Identity Not on file Sexual Orientation Not on file Plan of Treatment Health Maintenance Due Date Last Done Comments Varicella Vaccines (1 of 2 - 13+ 2-dose series) 1993 DTaP,Tdap,and Td Vaccines (6 - Tdap) 01/12/1995 01/11/1995, 01/02/1985, 04/29/1982, Additional history exists Hepatitis B Vaccines (1 of 3 - 19+ 3-dose series) 1999 COVID-19 Vaccine ( - season) 2024 Influenza Vaccines (#1) 2025 IPV Vaccines Completed 01/02/1985, 04/06, 1980, Additional history exists MMR Vaccines Completed 01/22/1992, 10/10/1981 HIB Vaccines Aged Out No longer eligi ble based on patient's age to complete this topic HPV Vaccines Aged Out No longer eligi ble based on patient's age to complete this topic Hepatitis A Vaccines Aged Out No long er eligible based on patient's age to complete this topic Men B Vaccine Aged Out No longer elig ible based on patient's age to complete this topic Meningococcal Vaccine Aged Out No randy frank eligible based on patient's age to complete this topic Pneumococcal Vaccine Aged Out No long er eligible based on patient's age to complete this topic
--- NOTE | 2025-04-03 16:56 | A.OFFPSYCH_ITS ---
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 I feel terrible most of the time. Reports early recovery with anxiety, mood swings, depression and inconsistent mood since he was in a coma for 17 days in December 2018, s/p overdose. Reports having sx of white coat syndrome which has prevented him from seeking more help. Has been off meds for 15 years due to having side effects (RLS, TD, Tremor, Jaw tightening). These were frightening, promoted relapse, and pt wondered if meds were even a good option for him. He is willing to do trials, asks that he not virgen given any addictive medications. 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 Reports methadone causes constipation and my GI tract does not work well. Has nausea, uses Zofran, which interacts with his methadone-awakens early so sx will pass before he begins his day. Overall endurance he finds t be weaker , tires easily and needs to pace himself. These sx increase his depression and associated sx. Past Psychiatric History: IP: 2021 [facility]. Reports admit to [facility] a few times OP: Denies, Did have treatment during incarceration at [facility] Trials: Trazodone, Chlorpromazine, Depakote XR, Buspirone, [place]- [place] of leg swelling, Benztropine, Prozac, SA: OD Trazodone, OD fentanyl, cocaine with subsequent coma Denies hx or current AH,VH, hx of some hypomania, increased energy, some need for less sleep Subjective Subjective Subjective Medication Compliance: Yes Side effects from medications: No Review of Systems Medical Review of Systems: unchanged Review of Systems Review of Systems Denies Mental Status Exam Mental Status Exam Patient Appearance: Appropriate Patient Orientation: Person, Place, Time and Situation Level of Consciousness: Alert Patient Behavior: Talkative and Good Eye Contact Mood Description: Anxious and Apprehensive Affect Description: Anxious and Apprehensive Patient Cognition Impaired: No Ability to Follow Directions: Good Speech Pattern: Spontaneous Speech Memory Description: Intact Hallucinations: None Delusions: Not Present Thought Process: Intact Thought Content: positive for Intact Depressive Symptoms: Increased Anxiety and Increased Irritability Judgement: Good Assessment and Plan Assessment & Plan (1) PTSD (post-traumatic stress disorder): Status: Acute Code(s): F43.10 - Post-traumatic stress disorder, unspecified (2) Mood disorder: Status: Acute Code(s): F39 - Unspecified mood [affective] disorder (3) Polysubstance abuse: Status: Acute Code(s): F19.10 - Other psychoactive substance abuse, uncomplicated Plan 44 yo male, newly sober, on methadone, reporting symptoms of anxiety, mood swings, inconsistent moods, depression. Asks that we not use any addictive agents. Will begin with Lamictal trial. If tolerated, will titrate and add an antidepressant. Pt will follow up with our service. He is considering a return to psychotherapy. Medications: New lamotrigine (Lamictal) 25 mg PO DAILY 14 tabs 0RF 14 days Counseling and coordination of Care Medication management counseling: Effectiveness, Side effects, Dosing range, Duration, Drug interaction and Adherence Details: I spent [] minutes reviewing the record, seeing the patient and documenting in the medical record. Counseling provided to the patient/caregiver as outlined below. Addressed patient/caregiver concerns regarding current medication regime including effective adherence. Addressed patient/caregiver concerns regarding diagnosis and prognosis including accuracy of diagnosis, prognosis over time, impact of diagnosis. Addressed patient/caregiver concerns regarding impact of recent stressors. [facility] Medical History (Updated 04/18/25 @ 16:37 by Karen Cortez APRN) Mood disorder Nausea & vomiting Seborrhea Bilateral leg pain Bilateral shoulder pain Myalgia Epidermal cyst Bilateral foot pain Calcaneal spur of right foot Enthesopathy Nausea Hx of drug overdose Physical exam (~09/02/21) Screening for diabetes mellitus Bilateral edema of lower extremity Encounter to establish care Poor historian PTSD (post-traumatic stress disorder) Sebaceous cyst Anxiety and depression ACL (anterior cruciate ligament) tear Surgical History H/O wisdom tooth extraction History of epidermal inclusion cyst excision Family History Father No problems noted. Mother COPD (chronic obstructive pulmonary disease) Sister No problems noted. Brother No problems noted. Maternal Aunt Lung cancer Maternal Uncle Brain mass Social History Housing: House Alcohol intake: former Comment: quit 2009 Patient Tobacco Use Status: Former Tobacco user Tobacco use type: Cigarette Years Smoked: quit 2016 e-Cigarette/Vaping Use: Never Used Second Hand Smoke Exposure: Yes Substance Use Type: Marijuana service: No Current occupational status: disabled Cognitive needs: No Hearing needs: No Vision needs: Yes Social History: Born and raised locally. Mom is an RN, Dad was a hester. Dad when pt was age 17. Mom was a good support, but watched him like the butcher or smallgoods maker . Dad was a marine, he was strict and people were frightened of him. Pt loved hockey, but grew to dislike it as dad was critical of his skills and yelled at him a great deal. One brother, younger, one sister, younger. C student-stayed back x 1 year. Finished college. Family is Armenian Mu-Is[employer], father he believes had addiction, sister ADHD, cousin with schizophrenia, depression, no suicided Substance History: Started using substances around age 18. Clean for 9 years prior to relapse. 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 Currently sober for ~2 months. Drug of choice-opiates, has used everything (benzos, alchohol, cocaine, MDMA, ketamine). Every aspect of addiction applies to me Hx suboxone Hx of [facility] placement in [place], [place] Trauma History: Denies Coding Level of Care Code Psych Diag Eval w/Med (31455) Diagnoses PTSD (post-traumatic stress disorder) F43.10 Mood disorder F39 Polysubstance abuse F19.10
== END 2025-04-03 14:59 | disposition home or self-care (01) ==
LOC: HO.HOP 13:57
PROVIDERS: PCP Internal Medicine; Visit Provider Clinical Nurse Specialist Psychiatric/Mental Health, Adult
DX: F43.10 Post-traumatic stress disorder, unspecified (principal); F39 Unspecified mood [affective] disorder; F19.10 Other psychoactive substance abuse, uncomplicated
CPT/HCPCS: 90792

== ENCOUNTER → 2025-04-03 13:57 | Outpatient (BNVA) | payer OTHER, SELFPAY | PROVIDERS: PCP Internal Medicine; Visit Provider Clinical Nurse Specialist Psychiatric/Mental Health, Adult | DX: F43.10 Post-traumatic stress disorder, unspecified (principal); F39 Unspecified mood [affective] disorder; F19.10 Other psychoactive substance abuse, uncomplicated | CPT/HCPCS: 90792 ==

== ENCOUNTER 2025-04-15 15:54 | Outpatient (AMB) | payer OTHER, SELFPAY ==
--- NOTE | 2025-04-15 15:56 | A.OFFPC_ITS ---
Vital Signs 04/15/25 15:58 Height 5 ft 7 in Weight 219 lb 8 oz BMI 34.4 BP 120/72 Blood Pressure Location Lt brachial Position Sitting Pulse 78 Pulse Source Pulse Oximeter Pulse Oximetry (%) 98 Oxygen Delivery Method Room Air Intake Visit Reasons: obesity, cholesterol Air Conditioning Equipment Mechanic Required: No Accompanied by: Self / Same As Patient Allergies haloperidol (From HALDOL) Allergy (Unknown, Verified 04/15/25 15:57) unk Medication List - Last Reconciled 04/15/25 by Faith Martinez PA-C ketoconazole 2% 1 appl topical 2XW lamotrigine (Lamictal) 25 mg PO DAILY 14 days methadone 130 mg PO DAILY ondansetron HCl 4 mg PO BEDTIME PRN polyethylene glycol 3350 (Miralax) 17 grams PO DAILY Tobacco use date assessed: 04/15/25 Dental Screening Dental Screen Date: 04/15/25 Did you have a dental visit in the last 12 months?: Yes Did you have a dental problem in the last 6 months where you did not have access to dental care?: No Was dental information given to patient?: Patient has dentist HPI obesity, cholesterol HPI Details 44 year old male with past medical histo ry of polysubstance abuse, con stipation, psoriasis, PTSD, JANE, HLD, impaired glucose tolerance last seen 09/2024 coming in for follow up. Presenting with ongoing gastrointestinal issues and medication side effects. The patient reports nausea and vomiting, with episodes of vomiting blood, which he attributes to GERD. He has a history of acid reflux symptoms, including phlegm in the throat and waking up nauseous. The patient describes frequent episodes of nausea and vomiting, particularly in the mornings, which have been ongoing since 2019 after a coma. He reports 1 episode of vomiting from 6:00 AM to 10:00 AM last week, with dry heaving and possibly blood in the vomit. The patient is being followed by an outpatient psychiatric clinic for anxiety and PTSD, which he believes may exacerbate his gastrointestinal symptoms due to the new medication. [facility] Medical History (Updated 04/15/25 @ 16:19 by Faith Martinez PA-C) Nausea & vomiting Seborrhea Bilateral leg pain Bilateral shoulder pain Myalgia Epidermal cyst Bilateral foot pain Calcaneal spur of right foot Enthesopathy Nausea Hx of drug overdose Physical exam (~09/02/21) Screening for diabetes mellitus Bilateral edema of lower extremity Encounter to establish care Poor historian PTSD (post-traumatic stress disorder) Sebaceous cyst Anxiety and depression ACL (anterior cruciate ligament) tear Surgical History H/O wisdom tooth extraction History of epidermal inclusion cyst excision Family History Father No problems noted. Mother COPD (chronic obstructive pulmonary disease) Sister No problems noted. Brother No problems noted. Maternal Aunt Lung cancer Maternal Uncle Brain mass Social History Housing: House Alcohol intake: former Comment: quit 2009 Patient Tobacco Use Status: Former Tobacco user Tobacco use type: Cigarette Years Smoked: quit 2016 e-Cigarette/Vaping Use: Never Used Second Hand Smoke Exposure: Yes Substance Use Type: Marijuana service: No Current occupational status: disabled Cognitive needs: No Hearing needs: No Vision needs: Yes Questionnaire Thrive Questionnaire Date Thrive assessed: 04/15/25 I am a: Patient What is your living situation today?: I have a steady place to live Within the past 12 months, did the food you bought not last and you didn't have the money to get more?: Sometimes True Within the past 12 months, did you worry whether your food would run out before you got money to buy more?: Sometimes True Do you have trouble paying for medicines?: No Do you have trouble getting transportation to medical appointments?: No Do you have trouble paying your heating and electricity bill?: No Do you have trouble taking care of your child, family member or friend?: No Do you have trouble with day-to-day activities such as bathing, preparing meals, shopping, managing finances, etc.?: No Are you currently unemployed and looking for a job?: No Are you interested in more education?: Yes Please select the resources that you would like help with: Education Currently or been in a relationship where the following occur: No concerns reported THRIVE Score: 2 JANE-7 AMB Questionnaire JANE-7 Date JANE - 7 assessed: 04/15/25 Source: Developed by Drs. Artemio Villanueva, Concepcion Maza, Bear Carnes and colleagues, with an educational malini from [employer]. Review of Systems Const Denies body aches, Denies chills, Denies fever(s), Denies headache(s) and Denies poor appetite Eyes Reports no additional complaints ENT Denies dysphagia, Denies dizziness, Denies headache(s) and Denies odynophagia Card Denies chest pain, Denies syncope, Denies edema and Denies dyspnea Resp Denies cough and Denies dyspnea GI Denies abdominal pain, Denies constipation, Denies dysphagia, Reports dyspepsia, Reports heartburn, Denies diarrhea, Reports nausea, Denies odynophagia and Reports vomiting Reports no additional complaints Musc Reports no additional complaints and Denies abnormal gait Skin/Breast Reports system reviewed and no additional complaints, except as documented Neuro Denies abnormal gait, Denies dizziness, Denies syncope and Denies headache(s) Psych Reports no additional complaints Physical exam (Primary Care) Vital Signs: Last Vital Signs Pulse 78 04/15/25 15:58 BP 120/72 04/15/25 15:58 Pulse Ox 98 04/15/25 15:58 Oxygen Delivery Method Room Air 04/15/25 15:58 BMI result Body Mass Index 34.4 Tobacco/Smoking Status: Tobacco use Status Tobacco use date assessed 04/15/25 04/15/25 15:58 Patient Tobacco Use Status Former Tobacco user 04/15/25 15:58 Tobacco use type Cigarette 04/15/25 15:58 e-Cigarette/Vaping Use Never Used 04/15/25 15:58 Thrive Assessment: Date of Thrive Assessment Date Thrive assessed 04/15/25 04/15/25 15:58 Currently or been in a relationship where the following occur: No concerns reported Const General: cooperative, healthy appearing, comfortable and no acute distress Orientation/consciousness: patient oriented x3 HENMT Head: Yes normocephalic Ears: hearing grossly normal bilaterally General nose exam: Normal external nose present Eyes General: appearance normal, both eyes and all related structures Conjunctivae: conjunctivae normal Neck Neck: Yes full ROM and Yes no lymphadenopathy Resp Effort & Inspection: normal respiratory effort Auscultation: clear to auscultation bilaterally, no crackles, no rales, no rhonchi and no wheezes Cardio Rate: regular rate Rhythm: regular rhythm GI Palpation (GI): Soft to palpation, not firm, nontender, no guarding and not rigid Skin General skin exam: no rashes or lesions noted Neuro General: patient oriented x3 Gait exam (Neuro): Normal gait present Extrem General: Yes normal to inspection, Yes full ROM and No edema Psych Affect: normal affect Attitude: cooperative Insight: Good insight present (Psych) Judgement: Good judgement present (Psych) Coding Level of Care Code Est Pt Level 3 (02519) Diagnoses PTSD (post-traumatic stress disorder) F43.10 Generalized anxiety disorder F41.1 Blood pressure elevated without history of HTN R03.0 Hypercholesterolemia E78.00 Impaired glucose tolerance R73.02 Obesity E66.9 Nausea & vomiting R11.2 Assessment & Plan Assessment & Plan (1) PTSD (post-traumatic stress disorder): Code(s): F43.10 - Post-traumatic stress disorder, unspecified Category: Medical Plan: Continue to follow with outpatient psych clinic. He discontinued his Lamictal due to possible side effects and advised him to reach out to the outpatient psych clinic to inform them of this and reschedule his appointment. (2) Generalized anxiety disorder: Code(s): F41.1 - Generalized anxiety disorder Category: Medical Plan: See above (3) Blood pressure elevated without history of HTN: Code(s): R03.0 - Elevated blood-pressure reading, without diagnosis of hypertension Category: Medical Plan: Blood pressure within normal limits today 120/72. Avoid salt intake and encourage healthy diet and regular exercise. (4) Hypercholesterolemia: Code(s): E78.00 - Pure hypercholesterolemia, unspecified Category: Medical Plan: Avoid foods that are high in cholesterol such as red meat, fried foods, eggs and baked goods. Triglyceride goal of less than 150 and LDL goal of less than 100. Reminded about blood work (5) Impaired glucose tolerance: Code(s): R73.02 - Impaired glucose tolerance (oral) Category: Medical Plan: Decrease the amount of carbohydrates such as pasta, bread, rice, and potatoes and limit the amount of sweets. Although fruits are generally healthy they should be eaten in moderation as they are still high in sugar. Reminded about blood work (6) Obesity: Code(s): E66.9 - Obesity, unspecified Category: Medical Plan: Healthy diet and regular exercise is encouraged. Noted 14lb intentional weight loss since last visit. (7) Nausea & vomiting: Comment: A 40-year-old male referred for a 2nd opinion for nausea, vomiting and constipation. He had gone through extensive GI workup -good unfortunately there are no records for my review. He did have some diagnoses of cannabis hyper emesis per his report however he is on agreeable. Continues to have daily nausea as well as frequent vomiting of undigested food. Currently Methadone > 2 years- 2 years we will get a GES He has signed a release to obtain his records from previous climatology professor. Will then be scheduled with an MD per protocol for 2nd opinion. He is agreeable with the plan. Code(s): R11.2 - Nausea with vomiting, unspecified Category: Medical Plan: Patient reporting chronic history of nausea and vomiting was previously being seen by GI but has not needed them. I suspect GERD is likely a contributing factor to his nausea and occasional vomiting. Recommend starting on omeprazole daily and patient was given GERD guidelines to follow as well. Referral was placed to GI at patient request Avoid trigger foods such as citrus, tomato products, soda, caffeine, spicy foods and other foods that may be irritating to your stomach. Avoid laying flat 3-4 hours after eating and elevate the head of the bed 30 degrees to prevent acid from moving into the esophagus. Plan The patient will be referred to a climatology professor for further evaluation of his gastrointestinal symptoms, including nausea, vomiting, and possible blood in vomit. Omeprazole has been prescribed to manage symptoms of gastroesophageal reflux disease and protect the stomach lining. The patient is advised to take omeprazole daily and follow lifestyle modifications to reduce acid reflux symptoms, such as avoiding meals three hours before bedtime and elevating the head during sleep. The patient is encouraged to continue his weight loss efforts through physical activity, which has resulted in a 14-pound weight loss since the last visit. The patient is also advised to contact the psychiatric clinic to discuss the side effects experienced with the medication and to explore alternative treatments for anxiety and PTSD. This note was constructed using voice recognition software. While every effort has been made to ensure accuracy and co founder and director, still areas may have been included sometimes these areas may affect the content or meeting of the given symptoms. Total time spent caring for the patient today was 20 minutes. This includes time spent before the visit reviewing the chart, time spent during the visit, and time spent after the visit and documentation. Patient was informed and verbally consented to the use of an ambient scribe for clinic note documentation during this visit. Orders: Orders Complete Blood Count Auto Diff Today R03.0 - Elevated blood-pressure reading, without diagnosis of hypertension, Z00.00 - Encounter for general adult medical examination without abnormal findings Vitamin B12 and Folate Today Z13.21 - Encounter for screening for nutritional disorder Lipid Panel Today E78.00 - Pure hypercholesterolemia, unspecified Hemoglobin A1c Today E11.65 - Type 2 diabetes mellitus with hyperglycemia, R73.02 - Impaired glucose tolerance (oral) Comprehensive Met. Panel Today R73.02 - Impaired glucose tolerance (oral), Z00.00 - Encounter for general adult medical examination without abnormal findings TSH reflex Free T4 Today Z13.29 - Encounter for screening for other suspected endocrine disorder Vitamin D 25-OH Total Today Z13.21 - Encounter for screening for nutritional disorder Referrals Gastroenterology Referral K59.00 - Constipation, unspecified, R11.2 - Nausea with vomiting, unspecified Medications: New omeprazole 20 mg PO DAILY 90 caps 0RF
[2025-04-15 15:58] VITALS: BP 120/72; PULSE 78; O2SAT 98; BMI 34.4
== END 2025-04-15 16:41 | disposition home or self-care (01) ==
LOC: HO.HMCH 15:55
PROVIDERS: PCP Internal Medicine
DX: R03.0 Elevated blood-pressure reading, without diagnosis of hypertension (principal); E66.9 Obesity, unspecified; Z68.34 Body mass index [BMI] 34.0-34.9, adult; F43.10 Post-traumatic stress disorder, unspecified; F41.1 Generalized anxiety disorder; E78.00 Pure hypercholesterolemia, unspecified; R73.02 Impaired glucose tolerance (oral); R11.2 Nausea with vomiting, unspecified

== ENCOUNTER → 2025-04-15 15:54 | Outpatient (BNVA) | payer OTHER, SELFPAY | PROVIDERS: PCP Internal Medicine | DX: E11.65 Type 2 diabetes mellitus with hyperglycemia (principal); F43.10 Post-traumatic stress disorder, unspecified; E66.9 Obesity, unspecified; Z68.34 Body mass index [BMI] 34.0-34.9, adult; K59.00 Constipation, unspecified; F41.1 Generalized anxiety disorder; E78.5 Hyperlipidemia, unspecified; R11.2 Nausea with vomiting, unspecified; R03.0 Elevated blood-pressure reading, without diagnosis of hypertension; E78.00 Pure hypercholesterolemia, unspecified | CPT/HCPCS: 96127; 99212 ==

== ENCOUNTER 2025-04-25 15:14 | Outpatient (REF) | payer OTHER, SELFPAY ==
[2025-04-26 09:49] LABS: Lyme Abs Screen <0.90 index
== END 2025-04-25 15:15 | disposition home or self-care (01) ==
LOC: HO.LAB 15:14
PROVIDERS: PCP Internal Medicine; Visit Provider Clinical Nurse Specialist Psychiatric/Mental Health, Adult
DX: M25.50 Pain in unspecified joint (principal)
CPT/HCPCS: 36415; 86617; 86618

== ENCOUNTER 2025-04-26 06:21 | Outpatient (REF) | payer OTHER, SELFPAY ==
[2025-04-26 06:33] LABS: MANUAL DIFF FLAG NO
[2025-04-26 07:17] LABS: Hematocrit 43.5 % (42.0-52.0); Hemoglobin 14.4 g/dl (14.0-18.0); Imm Gran Abs Auto 0.03 X10*3/uL (0.00-0.03); Imm Gran Pct Auto 0.6 % (0.0-0.4); Lymphocytes Absolute Auto 2.2 X10*3/uL (1.2-4.9); Mean Corpuscular HGB Conc 33.1 g/dl (31.0-36.0); Mean Corpuscular Hemoglobin 29.2 pg (27.0-33.0); Mean Corpuscular Volume 88.2 fL (80.0-98.0); NRBC Abs Auto 0.000 X10*3/uL (0.0-0.012); NRBC Pct Auto 0.0 /100WBC (0.0-0.2); Platelet Count 203 X10*3/uL (160-400); Red Blood Count 4.93 X10*6/uL (4.60-5.80); White Blood Count 5.3 X10*3/uL (4.8-10.8)
[2025-04-26 07:46] LABS: Alanine Aminotransferase 41 U/L (0-40); Albumin Level 4.3 g/dL (3.5-5.0); Alkaline Phosphatase 84 U/L (39-117); Anion Gap 12 (12-20); Aspartate Amino Transferase 35 U/L (5-37); Blood Urea Nitrogen 9 mg/dL (9-16); Calcium 9.2 mg/dL (8.4-10.2); Carbon Dioxide 30 mmol/L (22-29); Chloride 105 mmol/L (96-108); Cholesterol 214 mg/dL (<200); Estimated Glomerular Filt Rate > 60; HDL Cholesterol 37 mg/dL (>40); Potassium 3.7 mmol/L (3.3-5.1); Sodium 143 mmol/L (135-145); Total Protein 6.7 g/dL (6.5-8.0); Triglycerides 199 mg/dL (<150)
[2025-04-26 07:52] LABS: Hemoglobin A1C 139.1326 umol/L; Total Hemoglobin (HGBA1C) 3808.3899 umol/L
[2025-04-26 08:29] LABS: Folate 9.4 ng/mL (> or = 4.0); Vitamin B12 485 pg/mL (200-900)
== END 2025-04-26 06:22 | disposition home or self-care (01) ==
LOC: HO.LAB 06:21
DX: Z00.00 Encounter for general adult medical examination without abnormal findings (principal); R03.0 Elevated blood-pressure reading, without diagnosis of hypertension; E11.65 Type 2 diabetes mellitus with hyperglycemia; E78.00 Pure hypercholesterolemia, unspecified; Z13.29 Encounter for screening for other suspected endocrine disorder; Z13.21 Encounter for screening for nutritional disorder
CPT/HCPCS: 36415; 80053; 80061; 82306; 82607; 82746; 83036; 84443; 85025

== ENCOUNTER 2025-05-08 15:22 | Outpatient (AMB) | payer OTHER, SELFPAY ==
--- NOTE | 2025-05-08 15:40 | MHC.OFFVISPS ---
Intake Intake Visit Reasons: follow up Intake Note: PHQ-9 13 [id number] [id number] Research And Development Specialist Required: No Allergies lamotrigine (From Lamictal) Allergy (Severe, Verified 04/16/25 16:29) Rash haloperidol (From HALDOL) Allergy (Unknown, Verified 04/15/25 15:57) unk Medication List - Last Reconciled 05/08/25 by Karen Cortez APRN ketoconazole 2% 1 appl topical 2XW methadone 130 mg PO DAILY olanzapine (Zyprexa) 2.5 mg PO BEDTIME omeprazole 20 mg PO DAILY ondansetron HCl 4 mg PO BEDTIME PRN polyethylene glycol 3350 (Miralax) 17 grams PO DAILY HPI- Psychiatric Chief Complaint: follow up HPI Narrative: Pt reports he has tolerated Olanzapine 2.5 mg and will increase to 5 mg HS. We will add Benztropine 1 mg daily as needed. Pt remains anxious. He discussed pending sentencing in [place]. He attended court and was given an sentencing date of 07/02/25. He was able to take his dog, Car (lab/manan), age 6 camping in an attempt to relax and this was helpful he reports. Family will care for Car if pt is incarcerated. Reports some sx of hypomania at times which he is not sure may be anxiety and apprehension regarding sentencing. Letter provided to pt to present to the court describing current treatment. Past Psychiatric History: IP: 2021 [facility]. Reports admit to [facility] a few times OP: Denies, Did have treatment during incarceration at [facility] Trials: Trazodone, Chlorpromazine, Depakote XR, Buspirone, Niland- SE of leg swelling, Benztropine, Prozac, SA: OD Trazodone, OD fentanyl, cocaine with subsequent coma Denies hx or current AH,VH, hx of some hypomania, increased energy, some need for less sleep Subjective Subjective Subjective Medication Compliance: Yes Side effects from medications: No Review of Systems Medical Review of Systems: unchanged Review of Systems Review of Systems Denies Mental Status Exam Mental Status Exam Patient Appearance: Appropriate Patient Orientation: Person, Place, Time and Situation Level of Consciousness: Alert Patient Behavior: Talkative and Good Eye Contact Mood Description: Anxious Affect Description: Anxious Patient Cognition Impaired: No Ability to Follow Directions: Good Speech Pattern: Spontaneous Speech Memory Description: Intact Hallucinations: None Delusions: Not Present Thought Process: Intact and Goal Oriented Thought Content: positive for Intact, positive for Circumstantial and positive for Goal Oriented Depressive Symptoms: Increased Anxiety and Thoughts of /Suicide (denies) Judgement: Good Assessment and Plan Assessment & Plan (1) Generalized anxiety disorder: Status: Acute Code(s): F41.1 - Generalized anxiety disorder (2) PTSD (post-traumatic stress disorder): Status: Acute Code(s): F43.10 - Post-traumatic stress disorder, unspecified (3) Mood disorder: Status: Acute Code(s): F39 - Unspecified mood [affective] disorder (4) Polysubstance abuse: Status: Acute Code(s): F19.10 - Other psychoactive substance abuse, uncomplicated Plan Increase Olanzapine to 5 mg HS Benztropine 1 mg daily prn EPS Letter for court was written and given to pt. Continue tx pending court decision making Medications: New olanzapine 5 mg PO BEDTIME 30 tabs 0RF benztropine 1 mg PO DAILY PRN 30 tabs 0RF eps Discontinued olanzapine Discontinued Reason: Doctor's Order 2.5 mg PO BEDTIME 14 tabs 0RF Counseling and coordination of Care Medication management counseling: Effectiveness, Side effects, Dosing range, Duration, Drug interaction and Adherence Diagnosis and Prognosis Counseling: Impact of diagnosis on life functions Details: I spent [] minutes reviewing the record, seeing the patient and documenting in the medical record. Counseling provided to the patient/caregiver as outlined below. Addressed patient/caregiver concerns regarding current medication regime including effective adherence. Addressed patient/caregiver concerns regarding diagnosis and prognosis including accuracy of diagnosis, prognosis over time, impact of diagnosis. Addressed patient/caregiver concerns regarding impact of recent stressors. [facility] Medical History Mood disorder Nausea & vomiting Seborrhea Bilateral leg pain Bilateral shoulder pain Myalgia Epidermal cyst Bilateral foot pain Calcaneal spur of right foot Enthesopathy Nausea Hx of drug overdose Physical exam (~09/02/21) Screening for diabetes mellitus Bilateral edema of lower extremity Encounter to establish care Poor historian PTSD (post-traumatic stress disorder) Sebaceous cyst Anxiety and depression ACL (anterior cruciate ligament) tear Surgical History H/O wisdom tooth extraction History of epidermal inclusion cyst excision Family History Father No problems noted. Mother COPD (chronic obstructive pulmonary disease) Sister No problems noted. Brother No problems noted. Maternal Aunt Lung cancer Maternal Uncle Brain mass Social History Housing: House Alcohol intake: former Comment: quit 2009 Patient Tobacco Use Status: Former Tobacco user Tobacco use type: Cigarette Years Smoked: quit 2016 e-Cigarette/Vaping Use: Never Used Second Hand Smoke Exposure: Yes Substance Use Type: Marijuana service: No Current occupational status: disabled Cognitive needs: No Hearing needs: No Vision needs: Yes Social History: Born and raised locally. Mom is an RN, Dad was a hester. Dad when pt was age 17. Mom was a good support, but watched him like the contract loader . Dad was a marine, he was strict and people were frightened of him. Pt loved hockey, but grew to dislike it as dad was critical of his skills and yelled at him a great deal. One brother, younger, one sister, younger. C student-stayed back x 1 year. Finished college. Family is Kosovan Islam, father he believes had addiction, sister ADHD, cousin with schizophrenia, depression, no suicided Substance History: Started using substances around age 18. Clean for 9 years prior to relapse. 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 Currently sober for ~2 months. Drug of choice-opiates, has used everything (benzos, alchohol, cocaine, MDMA, ketamine). Every aspect of addiction applies to me Hx suboxone Hx of [facility] placement in [place], [place] Trauma History: Denies Coding Level of Care Code Est Pt Level 3 (55136) Diagnoses Generalized anxiety disorder F41.1 PTSD (post-traumatic stress disorder) F43.10 Mood disorder F39 Polysubstance abuse F19.10
--- OUTSIDE RECORDS SUMMARY | 2025-05-08 17:26 | XMS_ITS | Clinical Summary ---
Author Organization [facility] Address [address] [place] [phone] Phone Care Team Providers Care Knowledge Engineer Name Role Phone Unavailable Primary Care Provider [...] of 3 - 19+ 3-dose series) 1999 HPV Vaccines (1 - 3-dose SCDM series) 2007 COVID-19 Vaccine ( season) 2024 Influenza Vaccines (#1) 2025 IPV [...]
== END 2025-05-08 16:00 | disposition home or self-care (01) ==
LOC: HO.HOP 15:22
PROVIDERS: Visit Provider Clinical Nurse Specialist Psychiatric/Mental Health, Adult
DX: F41.1 Generalized anxiety disorder (principal); F43.10 Post-traumatic stress disorder, unspecified; F39 Unspecified mood [affective] disorder; F19.10 Other psychoactive substance abuse, uncomplicated
CPT/HCPCS: 99213

== ENCOUNTER → 2025-05-08 15:22 | Outpatient (BNVA) | payer OTHER, SELFPAY | PROVIDERS: Visit Provider Clinical Nurse Specialist Psychiatric/Mental Health, Adult | DX: F41.1 Generalized anxiety disorder (principal); F43.10 Post-traumatic stress disorder, unspecified; F19.10 Other psychoactive substance abuse, uncomplicated | CPT/HCPCS: 99212 ==